=== PATIENT | female | born 1940 | race Caucasian/White ===

== ENCOUNTER 2018-09-07 04:07 | Inpatient (IN) ==
[2018-09-07 04:20] LABS: ABG HCO3 30.4 mmhg (22.0-26.0); ABG Oxygen Saturation 92 % (90-100); ABG PCO2 47.8 mmhg (35.0-45.0); ABG PH 7.42 mmol/L (7.35-7.45); ABG PO2 63.2 mmhg (80-100); ABG TCO2 31.9 mmhg (23-27)
[2018-09-07 04:22] LABS: Allen's Test Acceptable
[2018-09-07 04:37] LABS: Microscopic, Urine URINE MICROSCOPIC (MICROSCOPIC)
[2018-09-07 04:48] LABS: Appearance,Urine CLOUDY (Clear); Bilirubin,Urine Negative (Negative); Blood, Urine 2+ (Negative); Color,Urine YELLOW (Yellow); Glucose,Urine (UA) Negative (Negative); Ketones,Urine Negative (Negative); Leukocyte Esterase,Urine 2+ (Negative); Protein,Urine 1+ (Negative); Urobilinogen,Urine 0.2 EU/dl (0.2)
[2018-09-07 04:51] LABS: Amphetamine/Metha Screen,Urine Negative ng/mL (<1000); Barbiturates Screen,Urine Negative ng/mL (<200); Benzodiazepines Screen,Urine Negative ng/mL (<200); Cannabinoid Screen,Urine Negative ng/mL (<50); Cocaine Screen,Urine Negative ng/mL (<300); Methadone Screen,Urine Negative ng/mL (<300); Opiate Screen,Urine Positive ng/mL (<300); Phencyclidine Screen,Urine Negative ng/mL (<25)
[2018-09-07 04:52] LABS: WBC,Urine TNTC #/hpf (0-3)
[2018-09-07 04:56] LABS: Alanine Aminotransferase 22 U/L (12-78); Albumin Level 3.2 gm/dL (3.4-5.0); Albumin/Globulin Ratio 0.9 (1.1-1.8); Alkaline Phosphatase 83 U/L (46-116); Aspartate Amino Transferase 18 U/L (15-37); Bilirubin,Total 0.6 mg/dL (0.2-1.0); Blood Urea Nitrogen 28 mg/dL (7-18); Calcium 8.7 mg/dL (8.5-10.1); Carbon Dioxide 30 mmol/L (21.0-32.0); Chloride 90 mmol/L (98-107); Globulin 3.6 gm/dl (1.3-3.2); Glucose 133 mg/dL (74-106); Sodium 129 mmol/L (136-145); Total Protein,Serum 6.8 gm/dL (6.4-8.2)
[2018-09-07 04:58] LABS: Basophils % 0.3 % (0.1-2.0); Eosinophils % 0.1 % (0.1-12.0); Hematocrit 32.3 % (37.0-47.0); Hemoglobin 11.1 g/dL (12.2-16.2); Lymphocytes # 1.6 K/mm3 (0.7-4.5); Lymphocytes % 13.2 % (10-50); Mean Corpuscular HGB Conc 34.5 g/dL (31.8-35.4); Mean Corpuscular Hemoglobin 31.7 pg (27.0-31.2); Mean Corpuscular Volume 92.1 fl (81-99); Mean Platelet Volume 7.6 fl (7.4-10.4); Monocytes # 0.7 K/mm3 (0.1-1.0); Monocytes % 5.5 % (1.7-9.3); Neutrophils # 9.5 K/mm3 (1.8-7.8); Neutrophils % 80.9 % (37.0-80.0); Platelet Count 251 K/mm3 (142-424); Red Blood Count 3.51 M/mm3 (4.20-5.40); Red Cell Distribution Width 14.5 % (11.5-17.5); White Blood Count 11.8 K/mm3 (4.8-10.8)
[2018-09-07 05:05] LABS: C-Reactive Protein 32.5 mg/L (0.0-0.9)
--- NOTE | 2018-09-07 06:04 | Emergency Department Note ---
ED Disposition Clinical Impression: Acute exacerbation of chronic obstructive airways disease, Hyponatremia, Hypokalemia, Renal insufficiency, Elevated erythrocyte sedimentation rate, Elevated C-reactive protein UTI (urinary tract infection) Qualifiers: Urinary tract infection type: site unspecified Hematuria presence: without hematuria Qualified Code(s): N39.0 - Urinary tract infection, site not specified Anemia Qualifiers: Anemia type: unspecified type Qualified Code(s): D64.9 - Anemia, unspecified Chronic pain Qualifiers: Chronic pain type: chronic pain syndrome Qualified Code(s): G89.4 - Chronic pain syndrome Disposition: Admitted as Observation Condition on Discharge: Fair Referrals: Provider,Referral, [Primary Care Provider] - - Critical Care Critical Care Time: No Attestation: On 09/07/18, the high probability of a clinically significant, sudden or life threatening deterioration of the following system(s) required my full and direct attention, intervention and personal management. The time I documented below is in addition to time spent performing reported procedures but includes the following listed in this critical care notation. Medical Decision Making - Medical Records Medical records reviewed: Yes: I reviewed the patient's medical records. - Stanislav Inquiry Pt receiving controlled substance: No Vital Signs: 09/07/18 04:09 09/07/18 04:29 09/07/18 04:58 Temperature 99.3 F Temperature Source Oral Pulse Rate 94 H Pulse Rate [Right] 91 H 88 Respiratory Rate 16 16 Blood Pressure [Right Arm] 138/58 L 142/61 H Blood Pressure Mean [Right Arm] 84 88 Blood Pressure Source [Right Arm] Automatic Cuff Blood Pressure Position [Right Arm] Supine 02 Sat by Pulse Oximetry 92 L 94 L Oxygen Delivery Method Nasal Cannula Nasal Cannula Oxygen Flow Rate (LPM) 2.5 3 09/07/18 05:24 09/07/18 05:59 Temperature Temperature Source Pulse Rate Pulse Rate [Right] 83 85 Respiratory Rate 18 18 Blood Pressure [Right Arm] 113/53 L 136/68 Blood Pressure Mean [Right Arm] 73 90 Blood Pressure Source [Right Arm] Automatic Cuff Blood Pressure Position [Right Arm] Sitting 02 Sat by Pulse Oximetry 93 L 95 Oxygen Delivery Method Nasal Cannula Nasal Cannula Oxygen Flow Rate (LPM) 3 3 - Lab Data Lab results reviewed: Yes: I reviewed the patient's lab results. Lab Results 09/07/18 04:07: Specimen Source Left radial, O2 % 2.5 lpm nc, 30%, ABG pH 7.42, ABG pCO2 47.8 H, ABG pO2 63.2 L, ABG HCO3 30.4 H, ABG Total CO2 31.9 H, ABG O2 Saturation 92, ABG Base Excess 6.0 H, Raymundo Test Acceptable 09/07/18 04:31: WBC 11.8 H, RBC 3.51 L, Hgb 11.1 L, Hct 32.3 L, MCV 92.1, MCH 31.7 H, MCHC 34.5, RDW 14.5, Plt Count 251, MPV 7.6, Neut % (Auto) 80.9 H, Lymph % (Auto) 13.2, [place] % (Auto) 5.5, Eos % (Auto) 0.1, Baso % (Auto) 0.3, Neut # (Auto) 9.5 H, Lymph # (Auto) 1.6, [place] # (Auto) 0.7, Eos # (Auto) 0.0, Baso # (Auto) 0.0 09/07/18 04:31: Sodium 129 L, Potassium 3.0 L, Chloride 90 L, Carbon Dioxide 30, Anion Gap 12.0, BUN 28 H, Creatinine 1.38 H, Estimated Creat Clear 31, Estimated GFR 37 L, Est GFR ( Amer) 45 L, Glucose 133 H, Calcium 8.7, Total Bilirubin 0.6, AST 18, ALT 22, Alkaline Phosphatase 83, Troponin I < 0.02, C-Reactive Protein 32.5 H, Total Protein 6.8, Albumin 3.2 L, Globulin 3.6 H, Albumin/Globulin Ratio 0.9 L 09/07/18 04:31: Lactate 0.9 09/07/18 04:31: ESR 70 H 09/07/18 04:31: Urine Color Yellow, Urine Appearance Cloudy, Urine pH 6.0, Ur Specific [place] 1.020, Urine Protein 1+, Urine Glucose (UA) Negative, Urine Ketones Negative, Urine Blood 2+, Urine Nitrate Negative, Urine Bilirubin Negative, Urine Urobilinogen 0.2, Ur Leukocyte Esterase 2+ A, Urine RBC 10-20, Urine WBC Tntc 09/07/18 04:31: Urine Opiates Screen Positive H, Urine Methadone Screen Negative, Ur Barbituates Screen Negative, Ur Phencyclidine Scrn Negative, Ur Amphetamines Screen Negative, U Benzodiazepines Scrn Negative, Urine Cocaine Screen Negative, U Marijuana (THC) Screen Negative Result diagrams: 09/07/18 04:31 09/07/18 04:31 Orders (Tests/Meds): ED MEDICATIONS Generic Name Dose Route Start Last Admin Trade Name Freq PRN Reason Stop Dose Admin Sodium Chloride 1,000 mls @ 999 mls/hr 09/07/18 04:45 09/07/18 04:36 Sod Chlor 0.9% 1000ml Bag IV 09/07/18 05:45 999 mls/hr .[id number] RAY Administration Discontinued Medications Generic Name Dose Route Start Last Admin Trade Name Freq PRN Reason Stop Dose Admin Albuterol/Ipratropium 3 ml 09/07/18 04:34 09/07/18 04:36 Duoneb 3ml Neb IH 09/07/18 04:35 3 ml ONCE ONE Administration Methylprednisolone Sodium Succinate 125 mg 09/07/18 04:34 09/07/18 04:36 Solu-Medrol 125mg/2ml Vial IV 09/07/18 04:35 125 mg ONCE ONE Administration ORDERS Category Date Time Status CT head/brain wo con Stat Cat Scan 09/07/18 04:19 Taken XR chest portable Stat Exams 09/07/18 04:07 Taken Blood Culture Stat Micro 09/07/18 04:31 Received Urine Culture Stat Micro 09/07/18 04:31 Received - Radiology Data #1 Image(s): Chest Image Reviewed: Yes I reviewed the patient's radiology image Preliminary Findings: Abnormal (changes rt ) - CT Data CT Scan: Head Time Received: 06:[address] Reviewed: Yes: I have viewed the radiologist's interpretation Preliminary Findings: Normal/NAD Resp/SOB HPI - General Chief Complaint: Shortness of Breath/Dyspnea Stated Complaint: Shortness of Breath Time Seen by Provider: 09/07/18 05:00 Mode of Arrival: EMS Source of Information: Patient, Spouse, EMS, Medical Record Limitations: Altered Mental Status Description of Symptoms (Recalled from ER Triage Doc. by RN): pt here via EMS for SOA, pt very sleepy on arival,requires mult verbal prompts to answer questions. Albuterol neb given by EMS - History of Present Illness pt with weakness and dec level of activity over the last few days and this am was to weak to ambulate and brought by ems for eval- she uses o2 and has copd and chronic pain - no vomiiting or diarrhea - MD Complaint: shortness of breath Onset (ago): day(s) Severity: moderate Known history of: COPD Associated symptoms: cough, other (weakness) Treatment prior to arrival: bronchodilator - Related Data Home oxygen amount: 2 liters Home Medications Medication Instructions Recorded Confirmed Albuterol Sulfate [Proair Hfa 2 puffs IH Q4HP PRN 09/07/18 09/07/18 90mcg/puff Inh] Biotin 1,000 mcg PO DAILY 09/07/18 09/07/18 Escitalopram Oxalate 10 mg PO DAILY 09/07/18 09/07/18 Naloxegol Oxalate [Movantik] 12.5 mg PO BID 09/07/18 09/07/18 Oxycodone HCl/Acetaminophen 1 tab PO TID 09/07/18 09/07/18 [Percocet 10-325 mg Tablet] Quetiapine Fumarate 50 mg PO HS 09/07/18 09/07/18 hydroCHLOROthiazide [HCTZ 25mg 25 mg PO DAILY 09/07/18 09/07/18 tab] Allergies Allergy/AdvReac Type Severity Reaction Status Date / Time codeine [CODEINE] Allergy Unknown UNKNOWN Verified 09/07/18 04:32 morphine [MORPHINE] Allergy Unknown Verified 09/07/18 04:32 Sulfa (Sulfonamide Allergy Unknown UNKNOWN Verified 09/07/18 04:32 Antibiotics) [SULFA (SULFONAMIDE ANTIBIOTICS)] [facility] History - Hepatitis A Screen Drug use history?: No High risk sexual behaviors?: No History of sexually transmitted infection?: No Currently employed?: No Childcare worker?: No Do you have indoor plumbing?: Yes Do you have electricity?: Yes Attestation statement:: This patient has been screened for Hepatitis A risk factors. I have reviewed the patient's past medical history: Yes Medical History: Reports:: Home Oxygen - Social History Smoking Status: Former smoker Alcohol Intake: never Occupational Status: retired - Psychiatric History Expresses thoughts of harming self/others: None Suicide Plan Description: No Plan ROS Obtained: Yes All systems reviewed & no additional complaints - Constitutional Constitutional: Denies fever(s), Reports lethargy, Reports weakness - Eyes Eyes: Denies change in vision - ENT Ears, Nose, Mouth, and Throat: Denies headache(s) - Cardiovascular Cardiovascular: Denies chest pain - Respiratory Respiratory: Yes cough, No coughing up blood - Gastrointestinal Gastrointestingal: Denies: abdominal pain, nausea, vomiting - Genitourinary Female Genitourinary: Denies hematuria - Musculoskeletal Musculoskeletal: Denies joint pain, Denies neck pain - Integumentary/Breasts Skin/Breast: Denies rash - Neurologic Neurologic: Denies seizure-like activity Physical Exam - General General appearance: alert - Head Head exam: normocephalic - Eye Eye exam: Present: PERRL, EOMI - ENT ENT exam: Present: mucous membranes moist, mucous membranes dry - Neck Neck exam: Absent: trachea midline - Respiratory Respiratory exam: Present: normal lung sounds bilaterally. Absent: respiratory distress - Cardiovascular Cardiovascular exam: Present: regular rate, systolic murmur - Abdominal Exam Abdominal exam: Present: soft - Extremities Exam Extremities exam: Absent: calf tenderness - Expanded Lower Extremity Exam Left Knee exam: Present: tenderness, effusion Lower leg exam: Present: tenderness, Homans' sign Neurovascular/Tendon exam: Present: normal capillary refill. Absent: motor defi cit - Neurological Exam Neurological exam: Present: alert, oriented X3, CN II-XII intact - Psychiatric Psychiatric exam: Present: normal affect - Skin Skin exam: Absent: rash
--- NOTE | 2018-09-07 08:46 | History & Physical Report ---
*Admission Date: 09/07/18 *Chief complaint: weakness *History of present illness: this wf who has copd and on chronic o2 and has chronic pain with back issues followed by pain center- she has not felt well over the last few days and dec po intake and was unable to ambulate and was confused and brought to [facility] ed - she was found to have uti and abn labs and was admitted [facility] History I have reviewed the patient's past medical history: Yes Medical History: Reports:: Home Oxygen Denies:: Cancer, Diabetes Mellitus Type 1, Diabetes Mellitus Type 2, MRSA *Have you ever received a pneumonia vaccine?: Yes *Have you received a flu vaccine this season?: Yes Amputation: No Fractures: No - *Social History Educational Level: Completed High School Smoking Status: Former smoker Alcohol Intake: never *Occupational Status:: retired Housing: house Household Members: spouse *Travel in the last 8 weeks: None - Psychiatric History Expresses thoughts of harming self/others: None Suicide Plan Description: No Plan Family Hx:: Heart Attack Review of Systems - Review of Systems Review of systems:: pertinent systems reviewed and negative unless documented below - Constitutional Reports fatigue, Reports weakness, Reports other (change in mental status ), Denies fever(s) - Eyes Denies change in vision - ENT Denies sore throat - *Cardiovascular Denies chest pain at rest - *Respiratory Reports shortness of breath, Denies cough, Denies coughing up blood - *Gastrointestinal Denies abdominal pain - *Genitourinary Denies blood in urine - *Musculoskeletal Denies joint pain - Integumentary/Breasts Denies rash - *Neurologic Reports weakness, Denies headache(s), Denies seizure-like activity - Psychiatric Denies anxiety Meds Home Medications Medication Instructions Recorded Confirmed Type Albuterol Sulfate [Albuterol 2.5 mg IH Q6HP PRN 09/07/18 09/07/18 History 0.083% 2.5mg/3mL neb] Albuterol Sulfate [Proair Hfa 2 puffs IH Q4HP PRN 09/07/18 09/07/18 History 90mcg/puff Inh] Aspirin [Aspirin 81mg EC Tab] 81 mg PO DAILY 09/07/18 09/07/18 History Biotin 1,000 mcg PO DAILY 09/07/18 09/07/18 History Budesonide/Formoterol Fumarate 2 puffs IH BID 09/07/18 09/07/18 History [Symbicort 160-4.5 Mcg Inhaler] Fluticasone/Vilanterol [Breo 1 puff IH DAILY 09/07/18 09/07/18 History Ellipta 200-25 Mcg INH] Naloxegol Oxalate [Movantik] 12.5 mg PO DAILYP PRN 09/07/18 09/07/18 History Oxycodone HCl [Oxycodone (IR) 10mg 10 mg PO TID 09/07/18 09/07/18 History Tab] Promethazine HCl [Phenergan 25mg 25 mg PO Q4HP PRN 09/07/18 09/07/18 History tab] Quetiapine Fumarate 50 mg PO HS 09/07/18 09/07/18 History Tiotropium Bode [Spiriva 1 puff IN DAILY 09/07/18 09/07/18 History Respimat] dilTIAZem HCl [Dilt-Xr] 120 mg PO DAILY 09/07/18 09/07/18 History hydroCHLOROthiazide [HCTZ 25mg 25 mg PO DAILY 09/07/18 09/07/18 History tab] Allergies Allergy/AdvReac Type Severity Reaction Status Date / Time codeine [CODEINE] Allergy Unknown UNKNOWN Verified 09/07/18 04:32 morphine [MORPHINE] Allergy Unknown Verified 09/07/18 04:32 Sulfa (Sulfonamide Allergy Unknown UNKNOWN Verified 09/07/18 04:32 Antibiotics) [SULFA (SULFONAMIDE ANTIBIOTICS)] Exam Vital signs and Labs for Last 24 Hours: Temp Pulse Resp BP Pulse Ox 98.2 F 85 16 131/47 L 93 L 09/07/18 07:00 09/07/18 07:00 09/07/18 07:00 09/07/18 07:00 09/07/18 07:00 Laboratory Results - last 24 hr 09/07/18 04:07: Specimen Source Left radial, O2 % 2.5 lpm nc, 30%, ABG pH 7.42, ABG pCO2 47.8 H, ABG pO2 63.2 L, ABG HCO3 30.4 H, ABG Total CO2 31.9 H, ABG O2 Saturation 92, ABG Base Excess 6.0 H, Raymundo Test Acceptable 09/07/18 04:31: WBC 11.8 H, RBC 3.51 L, Hgb 11.1 L, Hct 32.3 L, MCV 92.1, MCH 31.7 H, MCHC 34.5, RDW 14.5, Plt Count 251, MPV 7.6, Neut % (Auto) 80.9 H, Lymph % (Auto) 13.2, [place] % (Auto) 5.5, Eos % (Auto) 0.1, Baso % (Auto) 0.3, Neut # (Auto) 9.5 H, Lymph # (Auto) 1.6, [place] # (Auto) 0.7, Eos # (Auto) 0.0, Baso # (Auto) 0.0 09/07/18 04:31: Sodium 129 L, Potassium 3.0 L, Chloride 90 L, Carbon Dioxide 30, Anion Gap 12.0, BUN 28 H, Creatinine 1.38 H, Estimated Creat Clear 31, Estimated GFR 37 L, Est GFR ( Amer) 45 L, Glucose 133 H, Calcium 8.7, Total Bilirubin 0.6, AST 18, ALT 22, Alkaline Phosphatase 83, Troponin I < 0.02, C- Reactive Protein 32.5 H, Total Protein 6.8, Albumin 3.2 L, Globulin 3.6 H, Albumin/Globulin Ratio 0.9 L 09/07/18 04:31: Lactate 0.9 09/07/18 04:31: ESR 70 H 09/07/18 04:31: Urine Color Yellow, Urine Appearance Cloudy, Urine pH 6.0, Ur Specific [place] 1.020, Urine Protein 1+, Urine Glucose (UA) Negative, Urine Ketones Negative, Urine Blood 2+, Urine Nitrate Negative, Urine Bilirubin Negative, Urine Urobilinogen 0.2, Ur Leukocyte Esterase 2+ A, Urine RBC 10-20, Urine WBC Tntc 09/07/18 04:31: Urine Opiates Screen Positive H, Urine Methadone Screen Negative, Ur Barbituates Screen Negative, Ur Phencyclidine Scrn Negative, Ur Amphetamines Screen Negative, U Benzodiazepines Scrn Negative, Urine Cocaine Screen Negative, U Marijuana (THC) Screen Negative I & O for Last 24 hours: Intake & Output 09/04/18 09/05/18 09/06/18 09/07/18 11:59 11:59 11:59 11:59 Intake Total 1050 / 1050 Output Total 500 / 500 Balance 550 / 550 Weight 128 lb 9 oz - Constitutional no acute distress, average body habitus - *Routine HEENT Exam Head: Present: normocephalic Eye: Present: EOMI, PERRL ENT: Present: mucous membranes dry - *Routine Neck Exam Present: supple - *Routine Respiratory Exam Present: prolonged expiratory phase, wheezes. Absent: respiratory distress - *Routine Cardiovascular Exam Present: RRR, murmur, S4 - *Routine Abdominal Exam Present: soft - *Routine Extremities Exam Absent: Rocky's sign - Routine Back/Spine/Pelvis Exam Back/Spine: Absent: CVA tenderness - *Routine Skin Exam Present: intact - *Routine Neurological Exam Present: alert, oriented X3, CN II-XII intact - Routine Psychiatric Exam Present: normal affect Assessment and Plan (1) UTI (urinary tract infection) Current visit: Yes Status: Acute Qualifiers: Urinary tract infection type: site unspecified Hematuria presence: without hematuria Qualified Code(s): N39.0 - Urinary tract infection, site not specified Category: Medical Code(s): N39.0 - Urinary tract infection, site not specified (2) Acute exacerbation of chronic obstructive airways disease Current visit: Yes Status: Acute Category: Medical Code(s): J44.1 - Chronic obstructive pulmonary disease with (acute) exacerbation (3) Chronic pain Current visit: Yes Status: Acute Qualifiers: Chronic pain type: chronic pain syndrome Qualified Code(s): G89.4 - Chronic pain syndrome Category: Medical Code(s): G89.29 - Other chronic pain (4) Renal insufficiency Current visit: Yes Status: Acute Category: Medical Code(s): N28.9 - Disorder of kidney and ureter, unspecified (5) Elevated erythrocyte sedimentation rate Current visit: Yes Status: Acute Category: Medical Code(s): R70.0 - Elevated erythrocyte sedimentation rate (6) Anemia Current visit: Yes Status: Acute Qualifiers: Anemia type: unspecified type Qualified Code(s): D64.9 - Anemia, unspecified Category: Medical Code(s): D64.9 - Anemia, unspecified (7) UTI (urinary tract infection), bacterial Current visit: Yes Status: Acute Category: Medical Code(s): N39.0 - Urinary tract infection, site not specified; A49.9 - Bacterial infection, unspecified
--- NOTE | 2018-09-07 11:53 | Pharmacy Consult Notes ---
[facility] Pharmacy VTE Monitoring - Patient Demographics Admission date: 09/07/18 Report Date: 09/07/18 Time: 11:53 Allergies/Adverse Reactions: Patient Allergies codeine [CODEINE] Allergy (Unknown, Verified 09/07/18 04:32) UNKNOWN morphine [MORPHINE] Allergy (Unknown, Verified 09/07/18 04:32) Sulfa (Sulfonamide Antibiotics) [SULFA (SULFONAMIDE ANTIBIOTICS)] Allergy (Unknown, Verified 09/07/18 04:32) UNKNOWN Height: 1.63 m Weight: 58.315 kg Patient Problems: Current Active Problems (Updated 09/07/18 @ 06:32 by Louie Le MD) UTI (urinary tract infection) (Acute) Acute exacerbation of chronic obstructive airways disease (Acute) Anemia (Acute) Hyponatremia (Acute) Chronic pain (Acute) Hypokalemia (Acute) Renal insufficiency (Acute) Elevated erythrocyte sedimentation rate (Acute) Elevated C-reactive protein (Acute) - VTE Risk Labs: VTE Related Lab Results Hgb 11.1 g/dL (12.2-16.2) L 09/07/18 04:31 Hct 32.3 % (37.0-47.0) L 09/07/18 04:31 Plt Count 251 K/mm3 (142-424) 09/07/18 04:31 BUN 28 mg/dL (7-18) H 09/07/18 04:31 Creatinine 1.38 mg/dL (0.55-1.02) H 09/07/18 04:31 Estimated Creat Clear 31 mL/min (50-200) 09/07/18 04:31 VTE Score: 2 - Prophylaxis VTE Prophylaxis Ordered?: Yes Types of VTE Prophylaxis: TEDS Knee High Location of Applied Device: Bilateral Lower Extremeties
[2018-09-08 06:02] LABS: Basophils % 0.1 % (0.1-2.0); Eosinophils % 0.1 % (0.1-12.0); Hemoglobin 10.1 g/dL (12.2-16.2); Lymphocytes # 1.3 K/mm3 (0.7-4.5); Lymphocytes % 9.6 % (10-50); Mean Corpuscular HGB Conc 33.6 g/dL (31.8-35.4); Mean Corpuscular Hemoglobin 31.5 pg (27.0-31.2); Mean Corpuscular Volume 93.8 fl (81-99); Mean Platelet Volume 7.8 fl (7.4-10.4); Monocytes # 0.5 K/mm3 (0.1-1.0); Monocytes % 3.3 % (1.7-9.3); Neutrophils # 11.9 K/mm3 (1.8-7.8); Neutrophils % 86.9 % (37.0-80.0); Platelet Count 241 K/mm3 (142-424); Red Cell Distribution Width 14.4 % (11.5-17.5); White Blood Count 13.7 K/mm3 (4.8-10.8)
[2018-09-08 06:22] LABS: Calcium 8.9 mg/dL (8.5-10.1); Chol/HDL Ratio 2.2 (1-3.5)
[2018-09-08 06:35] LABS: Lymphocytes % 7 % (10-50); Monocytes % 1 % (2-9); Neutrophils % 86 % (42-76); Polychromasia 1+; Total Cells Counted 100
--- NOTE | 2018-09-08 09:25 | Discharge Summary ---
General - General Admission date:: 09/07/18 Discharge date: 09/08/18 HPI HPI: this wf who has copd and on chronic o2 and has chronic pain with back issues followed by pain center- she has not felt well over the last few days and dec po intake and was unable to ambulate and was confused and brought to [facility] - she was found to have uti and abn labs and was admitted Hospital Course Hospital Course: pt did better with ivf anbd abx and has gram neg bact uti - labs stable except persistant low k - will d/c today and have pt call pcp for follow up and urine culture results Objective Vital signs: Temp Pulse Resp BP Pulse Ox 97.6 F 89 16 119/44 L 96 09/08/18 08:00 09/08/18 08:00 09/08/18 08:00 09/08/18 08:00 09/08/18 08:00 no acute distress, average body habitus - *Routine HEENT Exam Head: Present: normocephalic Eye: Present: EOMI, PERRL. Absent: conjunctival icterus ENT: Present: mucous membranes dry - *Routine Neck Exam Absent: JVD - *Routine Respiratory Exam Present: prolonged expiratory phase. Absent: respiratory distress - *Routine Cardiovascular Exam Present: RRR, murmur - *Routine Abdominal Exam Present: soft - *Routine Extremities Exam Absent: Rocky's sign - *Routine Skin Exam Present: intact - *Routine Neurological Exam Present: alert, oriented X3, CN II-XII intact - Routine Psychiatric Exam Present: normal affect Results Labs on day of discharge: Labs from last 24 hours 09/08/18 09/08/18 09/07/18 05:40 05:40 12:40 WBC 13.7 H RBC 3.20 L Hgb 10.1 L Hct 30.0 L MCV 93.8 MCH 31.5 H MCHC 33.6 RDW 14.4 Plt Count 241 MPV 7.8 Neut % (Auto) 86.9 H Lymph % (Auto) 9.6 L [place] % (Auto) 3.3 Eos % (Auto) 0.1 Baso % (Auto) 0.1 Neut # (Auto) 11.9 H Lymph # (Auto) 1.3 [place] # (Auto) 0.5 Eos # (Auto) 0.0 Baso # (Auto) 0.0 Total Counted 100 Neutrophils % (Manual) 86 H Band Neutrophils % 6.0 Lymphocytes % (Manual) 7 L Monocytes % (Manual) 1 L Platelet Estimate Normal Polychromasia 1+ Poikilocytosis 1+ Sodium 134 L Potassium 3.0 L Chloride 98 Carbon Dioxide 28 Anion Gap 11.0 BUN 20 H D Creatinine 0.82 D Estimated Creat Clear 44 Estimated GFR 68 Est GFR ( Amer) 82 D Glucose 156 H Calcium 8.9 Magnesium 2.2 Troponin I < 0.02 Triglycerides 44 Cholesterol 109 L LDL Cholesterol 51 VLDL Cholesterol 9 HDL Cholesterol 49 Cholesterol/HDL Ratio 2.2 Urine Color Urine Appearance Urine pH Ur Specific [place] Urine Protein Urine Glucose (UA) Urine Ketones Urine Blood Urine Nitrate Urine Bilirubin Urine Urobilinogen Ur Leukocyte Esterase Urine RBC Urine WBC 09/07/18 09/07/18 11:00 04:31 WBC RBC Hgb Hct MCV MCH MCHC RDW Plt Count MPV Neut % (Auto) Lymph % (Auto) [place] % (Auto) Eos % (Auto) Baso % (Auto) Neut # (Auto) Lymph # (Auto) [place] # (Auto) Eos # (Auto) Baso # (Auto) Total Counted Neutrophils % (Manual) Band Neutrophils % Lymphocytes % (Manual) Monocytes % (Manual) Platelet Estimate Polychromasia Poikilocytosis Sodium Potassium Chloride Carbon Dioxide Anion Gap BUN Creatinine Estimated Creat Clear Estimated GFR Est GFR ( Amer) Glucose Calcium Magnesium Troponin I < 0.02 Triglycerides Cholesterol LDL Cholesterol VLDL Cholesterol HDL Cholesterol Cholesterol/HDL Ratio Urine Color Yellow Urine Appearance Cloudy Urine pH 6.0 Ur Specific [place] 1.020 Urine Protein 1+ Urine Glucose (UA) Negative Urine Ketones Negative Urine Blood 2+ Urine Nitrate Negative Urine Bilirubin Negative Urine Urobilinogen 0.2 Ur Leukocyte Esterase 2+ A Urine RBC 10-20 Urine WBC Tntc Preliminary micro results at discharge 09/07/18 04:31 Urine Culture - Preliminary Urine,Catheterized Gram Negative Rods DS: Diagnosis - Discharge Diagnosis (1) UTI (urinary tract infection) Status: Acute (2) Acute exacerbation of chronic obstructive airways disease Status: Acute (3) Chronic pain Status: Acute (4) Renal insufficiency Status: Acute (5) Elevated erythrocyte sedimentation rate Status: Acute (6) Anemia Status: Acute (7) UTI (urinary tract infection), bacterial Status: Acute (8) Hypokalemia Status: Acute Discharge Plan - Patient Discharge Instructions Patient Instructions: Urinary Tract Infection, Chronic Obstructive Pulmonary Disease, Anemia of Chronic Disease, DI for Chronic Obstructive Pulmonary Disease, DI for Urinary Tract Infection (UTI), DI for Anemia of Chronic Disease, DI for Hyponatremia, Hyponatremia-Adult - Follow up Plan Home Medications: Home Medications Medication Instructions Recorded Confirmed Type Albuterol Sulfate [Albuterol 2.5 mg IH Q6HP PRN 09/07/18 09/07/18 History 0.083% 2.5mg/3mL neb] Albuterol Sulfate [Proair Hfa 2 puffs IH Q4HP PRN 09/07/18 09/07/18 History 90mcg/puff Inh] Aspirin [Aspirin 81mg EC Tab] 81 mg PO DAILY 09/07/18 09/07/18 History Biotin 1,000 mcg PO DAILY 09/07/18 09/07/18 History Budesonide/Formoterol Fumarate 2 puffs IH BID 09/07/18 09/07/18 History [Symbicort 160-4.5 Mcg Inhaler] Fluticasone/Vilanterol [Breo 1 puff IH DAILY 09/07/18 09/07/18 History Ellipta 200-25 Mcg INH] Naloxegol Oxalate [Movantik] 12.5 mg PO DAILYP PRN 09/07/18 09/07/18 History Oxycodone HCl [Oxycodone (IR) 10mg 10 mg PO TID 09/07/18 09/07/18 History Tab] Promethazine HCl [Phenergan 25mg 25 mg PO Q4HP PRN 09/07/18 09/07/18 History tab] Quetiapine Fumarate 50 mg PO HS 09/07/18 09/07/18 History Tiotropium [place] [Spiriva 1 puff IN DAILY 09/07/18 09/07/18 History Respimat] dilTIAZem HCl [Dilt-Xr] 120 mg PO DAILY 09/07/18 09/07/18 History hydroCHLOROthiazide [HCTZ 25mg 25 mg PO DAILY 09/07/18 09/07/18 History tab] Prescriptions/Medication Reconciliation: No Action Albuterol Sulfate [Proair Hfa 90mcg/puff Inh] 2 puffs IH Q4HP PRN PRN Reason: Shortness Of Breath Or Wheezing hydroCHLOROthiazide [HCTZ 25mg tab] 25 mg PO DAILY Quetiapine Fumarate 50 mg PO HS Biotin 1,000 mcg PO DAILY Tiotropium [place] [Spiriva Respimat] 1 puff IN DAILY Budesonide/Formoterol Fumarate [Symbicort 160-4.5 Mcg Inhaler] 2 puffs IH BID Aspirin [Aspirin 81mg EC Tab] 81 mg PO DAILY Oxycodone HCl [Oxycodone (IR) 10mg Tab] 10 mg PO TID Promethazine HCl [Phenergan 25mg tab] 25 mg PO Q4HP PRN PRN Reason: Nausea And Vomiting Fluticasone/Vilanterol [Breo Ellipta 200-25 Mcg INH] 1 puff IH DAILY Naloxegol Oxalate [Movantik] 12.5 mg PO DAILYP PRN PRN Reason: Constipation dilTIAZem HCl [Dilt-Xr] 120 mg PO DAILY Albuterol Sulfate [Albuterol 0.083% 2.5mg/3mL neb] 2.5 mg IH Q6HP PRN PRN Reason: Shortness Of Breath
== END 2018-09-08 10:09 | disposition home or self-care (01) | DRG 690 ==
LOC: 2ND 04:07 → ER 04:07 → OBSVTOIN 06:50 → 2ND 06:51 → INTOOBSV 10:59
PROVIDERS: ADMIT Emergency Medicine; ATTEND Emergency Medicine

== ENCOUNTER 2020-06-17 13:19 | Observation (INO) | payer MEDICARE, BC, SELFPAY ==
[2020-06-17] VITALS (7 sets, daily range): BP systolic 138–188; BP diastolic 57–85; PULSE 68–101; RESP 16–19; TEMP 36.6–36.7; O2SAT 91–99; BMI 20.5; BMI 203444.5; BMI 19.7
[2020-06-17 13:43] LABS: Basophils # 0.1 K/mm3 (0-0.2); Basophils % 0.3 % (0.1-2.0); Eosinophils # 0.1 K/mm3 (0.0-0.4); Eosinophils % 0.4 % (0.1-12.0); Hematocrit 43.6 % (37.0-47.0); Hemoglobin 14.1 g/dL (12.2-16.2); Lymphocytes # 0.9 K/mm3 (0.7-4.5); Lymphocytes % 4.7 % (10-50); Mean Corpuscular HGB Conc 32.4 g/dL (31.8-35.4); Mean Corpuscular Hemoglobin 31.2 pg (27.0-31.2); Mean Corpuscular Volume 96.4 fl (81-99); Mean Platelet Volume 8.4 fl (7.4-10.4); Monocytes # 0.1 K/mm3 (0.1-1.0); Monocytes % 0.8 % (1.7-9.3); Neutrophils # 17.2 K/mm3 (1.8-7.8); Neutrophils % 93.8 % (37.0-80.0); Platelet Count 308 K/mm3 (142-424); Red Blood Count 4.52 M/mm3 (4.20-5.40); Red Cell Distribution Width 15.6 % (11.5-17.5); White Blood Count 18.3 K/mm3 (4.8-10.8)
[2020-06-17 13:48] LABS: MANUAL DIFFERENTIAL MANUAL DIFFERENTIAL (MANUAL DIFF)
[2020-06-17 13:51] LABS: Chloride 100 mmol/L (98-107); Potassium 4.1 mmoL/L (3.5-5.1); Sodium 139 mmol/L (136-145)
[2020-06-17 13:53] LABS: Amylase 115 U/L (30-110); Lipase 109 U/L (23-300)
[2020-06-17 13:54] LABS: Alanine Aminotransferase 11 U/L (12-78); Albumin Level 4.1 g/dl (3.5-5.0); Albumin/Globulin Ratio 1.4 (1.1-1.8); Alkaline Phosphatase 78 U/L (38-126); Anion Gap 10.1 mEq/L (5-15); Aspartate Amino Transferase 23 U/L (14-36); Bilirubin,Total 0.7 mg/dl (0.2-1.3); Blood Urea Nitrogen 20 mg/dl (7-17); Calcium 9.4 mg/dl (8.4-10.2); Carbon Dioxide 33 mmol/L (22.0-30.0); Creatinine Clearance Estimated 40 mL/min (50-200); Estimated Glomerular Filt Rate 61 ml/min (>60); GFR (African American) 73 ML/MIN (>60); Glucose 133 mg/dl (74-100); Total Protein,Serum 7.1 g/dl (6.3-8.2)
[2020-06-17 13:58] LABS: Eosinophils % 1 % (0-3); Lymphocytes % 9 % (10-50); Monocytes % 5 % (2-9); Neutrophils % 85 % (42-76); Platelet Estimate Normal; RBC Morphology Normal; Total Cells Counted 100
--- NOTE | 2020-06-17 14:11 | CT_ITS ---
PROCEDURE: CT ABDOMEN PELVIS W CON CLINICAL INDICATION: LLQ pain Left lower quadrant pain COMPARISON: No exams were available for comparison TECHNIQUE: IV Contrast: 75ML Isovue 370 Oral Contrast None Axial images obtained with sagittal and coronal reformats. All CT scans at the facility use one or more dose reduction, viz: automated exposure control, ma/kV adjustment per patient size (including targeted exams where dose is matched to indication, i.e. head), or iterative reconstruction technique. FINDINGS: LOWER THORAX: There are atelectatic or fibrotic changes in the right middle lobe medially. Bilateral breast implants are present. Coronary artery stents and or calcifications are noted. ABDOMEN & PELVIS: There is a hypodensity in the left hepatic lobe in the subcapsular region measuring 9 mm consistent with a hepatic cyst. Gallstones are noted. There is periportal edema. The spleen and adrenal glands are unremarkable. A coarse calcification is present in the central aspect of the body of the pancreas. There are calcifications also in the region of the head of the pancreas. The pancreatic duct in the head of the pancreas is slightly prominent. There is extensive artifact from postsurgical changes in the lumbar spine and right subcutaneous flank epidural stimulator device. There are perisplenic varices present There is a 6 mm left ureteropelvic junction stone with mild left-sided hydronephrosis. The right kidney has an unremarkable appearance. There is mild stranding of the left perinephric renal fat. There is a moderate amount of retained colonic feces. No evidence of appendicitis. There has been a prior hysterectomy. Colonic diverticulosis noted without evidence of diverticulitis. Mild thickening versus nondistention of the descending and sigmoid colon. Mild degenerative changes of the hips. Inter pedicular screws are present from L1-L5 with connecting rods with multilevel degenerative changes. Prior laminectomy at these levels. Degenerative disc disease T12-L1 with kyphosis and L5-S1. IMPRESSION: 1. 6 mm left ureteropelvic junction stone with mild left hydronephrosis and mild stranding of the left perinephric renal fat. 2. Coarse calcification within the pancreas which may be due to chronic pancreatitis with mild prominence of the pancreatic duct 3. Cholelithiasis 4. Extensive postsurgical changes of the lumbar spine with artifact. 5. Moderate amount of retained colonic feces with colonic diverticulosis. Mild thickening of the descending and sigmoid colon nonspecific and may be due to nondistention versus mild colitis Dictated by: Raymundo Mckee MD 06/17/2020 16:04 Raymundo Mckee MD in [place] 06/17/2020 16:04
--- NOTE | 2020-06-17 14:12 | HMH.EDGENADL ---
ED Disposition Clinical Impression: Left ureteral calculus UTI (urinary tract infection) Qualifiers: Urinary tract infection type: site unspecified Hematuria presence: with hematuria Qualified Code(s): N39.0 - Urinary tract infection, site not specified; R31.9 - Hematuria, unspecified Disposition: Admitted as Observation Condition on Discharge: Fair Referrals: Micheline Dumont [Primary Care Provider] - - Critical Care Critical Care Time: No Attestation: On 06/17/20, the high probability of a clinically significant, sudden or life threatening deterioration of the following system(s) required my full and direct attention, intervention and personal management. The time I documented below is in addition to time spent performing reported procedures but includes the following listed in this critical care notation. Medical Decision Making - Stanislav Inquiry Pt receiving controlled substance: Yes Stanislav was queried for this patient: No Reason not queried -: Emergent pt cond-no time Risks and benefits of using a controlled substance: were not discussed with pt by me Vital Signs: 06/17/20 13:20 06/17/20 15:30 06/17/20 16:00 Temperature 98 F Temperature Source Oral Pulse Rate [Radial] 95 H 101 H 90 Respiratory Rate 16 16 Blood Pressure [Right Arm] 188/85 H 176/57 H 138/62 Blood Pressure Mean [Right Arm] 119 96 87 Blood Pressure Position [Right Arm] Sitting Sitting 02 Sat by Pulse Oximetry 99 97 96 Oxygen Delivery Method Room Air Room Air 06/17/20 16:30 Temperature Temperature Source Pulse Rate [Radial] 95 H Respiratory Rate 16 Blood Pressure [Right Arm] 155/74 H Blood Pressure Mean [Right Arm] 101 Blood Pressure Position [Right Arm] Sitting 02 Sat by Pulse Oximetry 99 Oxygen Delivery Method - Lab Data Lab results reviewed: Yes: I reviewed the patient's lab results. Lab Results 06/17/20 13:30: WBC 18.3 H, RBC 4.52, Hgb 14.1, Hct 43.6, MCV 96.4, MCH 31.2, MCHC 32.4, RDW 15.6, Plt Count 308, MPV 8.4, Neut % (Auto) 93.8 H, Lymph % (Auto) 4.7 L, [place] % (Auto) 0.8 L, Eos % (Auto) 0.4, Baso % (Auto) 0.3, Neut # (Auto) 17.2 H, Lymph # (Auto) 0.9, Ness # (Auto) 0.1, Eos # (Auto) 0.1, Baso # (Auto) 0.1, Total Counted 100, Neutrophils % (Manual) 85 H, Lymphocytes % (Manual) 9 L, Monocytes % (Manual) 5, Eosinophils % (Manual) 1, Platelet Estimate Normal, RBC Morphology Normal 06/17/20 13:30: Sodium 139, Potassium 4.1, Chloride 100, Carbon Dioxide 33 H, Anion Gap 10.1, BUN 20 H, Creatinine 0.90, Estimated Creat Clear 40, Estimated GFR 61, Est GFR ( Amer) 73, Glucose 133 H, Calcium 9.4, Total Bilirubin 0.7, AST 23, ALT 11 L, Alkaline Phosphatase 78, Total Protein 7.1, Albumin 4.1, Globulin 3.0, Albumin/Globulin Ratio 1.4, Amylase 115 H 06/17/20 13:30: Lipase 109 06/17/20 13:30: SARS-CoV-2 IgG Ab (Rapid) Negative, SARS-CoV-2 IgM Ab (Rapid) Negative 06/17/20 14:25: Urine Color Yellow, Urine Appearance Sl cloudy, Urine pH 6.0, Ur Specific [place] 1.025, Urine Protein Trace, Urine Glucose (UA) Negative, Urine Ketones Negative, Urine Blood 3+, Urine Nitrate Positive, Urine Bilirubin Negative, Urine Urobilinogen 0.2, Ur Leukocyte Esterase 1+ A, Urine RBC 5-10, Urine WBC 10-20, Urine Bacteria 2+ Result diagrams: 06/17/20 13:30 06/17/20 13:30 Orders (Tests/Meds): ED MEDICATIONS Generic Name Dose Route Start Last Admin Trade Name Freq PRN Reason Stop Dose Admin Ceftriaxone Sodium 1 gm/ 50 mls @ 100 mls/hr 06/17/20 16:30 06/17/20 16:37 Sodium Chloride IV 07/01/20 16:29 100 mls/hr Q24H RAY Administration Protocol Discontinued Medications Generic Name Dose Route Start Last Admin Trade Name Freq PRN Reason Stop Dose Admin Hydromorphone HCl 0.5 mg 06/17/20 14:12 06/17/20 14:16 Hydromorphone 2mg/Ml Syringe IV 06/17/20 14:13 0.5 mg ONCE ONE Administration Hydromorphone HCl 1 mg 06/17/20 16:37 06/17/20 16:42 Hydromorphone 2mg/Ml Syringe IV 06/17/20 16:38 1 mg ONCE ONE Admin
--- NOTE | 2020-06-17 14:30 | PC.NURSE ---
PT AND SPOUSE UPDATED ON PLAN OF CARE
[2020-06-17 14:35] LABS: Microscopic, Urine URINE MICROSCOPIC (MICROSCOPIC)
[2020-06-17 14:39] LABS: Appearance,Urine SL CLOUDY (Clear); Bilirubin,Urine Negative (Negative); Blood, Urine 3+ (Negative); Color,Urine YELLOW (Yellow); Glucose,Urine (UA) Negative (Negative); Ketones,Urine Negative (Negative); Leukocyte Esterase,Urine 1+ (Negative); Nitrate,Urine POSITIVE (Negative); Protein,Urine TRACE (Negative); Specific Gravity, Urine 1.025 (1.005-1.030); Urobilinogen,Urine 0.2 EU/dl (0.2)
[2020-06-17 14:48] LABS: Bacteria,Urine 2+ /lpf
--- NOTE | 2020-06-17 15:30 | PC.NURSE ---
PT UP TO BATHROOM PER WHEELCHAIR
--- NOTE | 2020-06-17 16:30 | PC.NURSE ---
PT AND SPOUSE UPDATED ON PLAN OF CARE
[2020-06-17 17:19] LABS: Coronavirus 19 IgG Antibody Negative (Negative); Coronavirus 19 IgM Antibody Negative (Negative)
--- NOTE | 2020-06-17 17:48 | PC.NURSE ---
CALLED FLOOR TO GIVE REPORT
--- NOTE | 2020-06-17 18:41 | PC.NURSE ---
Pt arrived to the floor at this time.
--- NOTE | 2020-06-17 20:34 | HMH.HP ---
*Admission Date: 06/17/20 *Chief complaint: kidney stone,uti,chronic pain *History of present illness: Patient is a 80-year-old white female, service patient, presented with left flank pain. Her work-up in the ER included a CT abdomen. Findings are as below IMPRESSION: 1. 6 mm left ureteropelvic junction stone with mild left hydronephrosis and mild stranding of the left perinephric renal fat. 2. Coarse calcification within the pancreas which may be due to chronic pancreatitis with mild prominence of the pancreatic duct 3. Cholelithiasis 4. Extensive postsurgical changes of the lumbar spine with artifact. 5. Moderate amount of retained colonic feces with colonic diverticulosis. Mild thickening of the descending and sigmoid colon nonspecific and may be due to nondistention versus mild colitis Patient was also found to have an elevated white count and urinalysis suggesting a UTI. The urology service was consulted. We will admit her for IV antibiotics, pain control, and further treatment of the 6 mm stone at the left UPJ. Patient has some comorbid COPD and chronic pain, she has had several spinal surgeries done. [facility] History Medical History: Reports:: Chronic Obstructive Pulmonary Disease (COPD), Home Oxygen Denies:: Cancer, Diabetes Mellitus Type 1, Diabetes Mellitus Type 2, MRSA *Have you ever received a pneumonia vaccine?: No *Have you received a flu vaccine this season?: No Laterality Cases: Bilateral: Other (spine surgery) Other Surgeries: Yes: Other Amputation: No Fractures: No Comment: spine surgery - *Social History Smoking Status: Former smoker Alcohol Intake: never *Occupational Status:: retired Housing: house Household Members: spouse *Travel in the last 8 weeks: None Family Hx:: Heart Attack Review of Systems - Constitutional Reports weakness - Eyes Denies change in vision - ENT Denies change in voice - *Cardiovascular Denies chest pain - *Respiratory Reports cough, Reports shortness of breath, Reports shortness of breath with activity - *Gastrointestinal Reports abdominal pain - *Genitourinary Reports difficulty urinating, Reports painful urination, Denies blood in urine - *Musculoskeletal Denies abnormal walking - Integumentary/Breasts Denies yellowing of the skin - *Neurologic Denies localized weakness, Denies tingling/numbness/burning sensations - Psychiatric Reports irritability - Endocrine Denies cold intolerance - Hematologic/Lymphatic Denies easy bleeding - Allergic/Immunologic Denies hives Meds Home Medications Medication Instructions Recorded Confirmed Type Albuterol Sulfate [Albuterol 2.5 mg IH Q6HP PRN 09/07/18 07/02/20 History 0.083% 2.5mg/3mL neb] Fluticasone/Vilanterol [Breo 1 puff IH DAILY 09/07/18 07/02/20 History Ellipta 200-25 Mcg INH] Quetiapine Fumarate 50 mg PO HS 09/07/18 07/02/20 History Tiotropium [place] [Spiriva 1 puff IH DAILY 09/07/18 07/02/20 History Respimat] hydroCHLOROthiazide [HCTZ 25mg 25 mg PO DAILY 09/07/18 07/02/20 History tab] Albuterol Sulfate [Albuterol 2 puffs IH Q4HP PRN 06/18/20 07/02/20 History Sulfate Hfa] Budesonide/Formoterol Fumarate 2 puffs IH BID 06/18/20 07/02/20 History [Budesonide-Formoterol 160-4.5] Hydrocod/Acet 5/325 mg [[place] 1 tab PO Q6HP PRN #10 tab 07/05/20 Rx 5/325mg tablet] Allergies Allergy/AdvReac Type Severity Reaction Status Date / Time codeine [CODEINE] Allergy Unknown UNKNOWN Verified 07/02/20 11:52 morphine [MORPHINE] Allergy Unknown Verified 07/02/20 11:52 Sulfa (Sulfonamide Allergy Unknown UNKNOWN Verified 07/02/20 11:52 Antibiotics) [SULFA (SULFONAMIDE ANTIBIOTICS)] Exam Vital signs and Labs for Last 24 Hours: Temp Pulse Resp BP Pulse Ox 98 F 95 H 18 142/78 H 95 06/17/20 19:10 06/17/20 19:10 06/17/20 19:10 06/17/20 19:10 06/17/20 18:53 Laboratory Results - last 24 hr 06/17/20 13:30: WBC 18
[2020-06-18] VITALS (22 sets, daily range): BP systolic 117–162; BP diastolic 53–82; PULSE 68–110; RESP 16–20; TEMP 36.5–37.7; O2SAT 90–97; BMI 19.7
--- NOTE | 2020-06-18 | CA_ITS ---
APPROVED REPORT EXAM: Comprehensive 2D, Doppler, and color-flow Echocardiogram Swatch Clerk: Lisa Andrews, RT(R) Ht: 5 ft 4 in Wt: 115lbs BSA: 1.55 BP: 127/53 mmHg Indications: Preop for renal calculi procedure, COPD, ex smoker, SOB, HTN, hyperlipidemia, home o2, breast implants 2D Dimensions LVOT 2.07 cm (M/F) 1.5-2.5 M-Mode Dimensions RVDd 2.01 cm (0.9-2.6) LA Diam 2.69 cm (1.9-4.0) LVDd 3.25 cm (3.5-5.7) Ao Diam 1.95 cm (2.0-3.7) LVDs 2.38 cm (3.5-5.7) IVSd 1.14 cm (0.6-1.1) PWd 0.87 cm (0.6-1.1) EF (Teich) 53.60% FS 26.80% EDV (Teich) 42.50 mL ESV (Teich) 19.70 mL LV Diastology E Decel Time 210.00 (160-240 msec) E/A Ratio 0.7 MED E' 7.00 (< 7 cm/sec) E'/MED E' Ratio 13.37 (>14) LAT E' 6.80 (<10 cm/sec) E/LAT E' Ratio 13.76 (>14) Mitral Valve MV E Max Diomedes. 94.00 (40-130 cm/s) MV A Velocity 142.00 (40-130 cm/s) E/A Ratio 0.66 MV Decel. Time 210.00 (160-240 ms) MV PHT 62.00 ms Left Ventricle Left atrium is mildly enlarged, left ventricle is normal size, moderate concentric left ventricular hypertrophy, visually estimated ejection fraction 65% with no regional wall motion abnormality, grade 1 diastolic dysfunction seen without tissue Doppler evidence of raise left atrial pressure. Right Ventricle Right atrium and right ventricle are normal size and contractility. Aortic Valve Aortic valve is minimally thickened and fibrosed, there is no aortic stenosis or aortic insufficiency. Mitral Valve Mitral valve leaflets are minimally thickened, there is no mitral stenosis, there is mild mitral regurgitation. Tricuspid Valve Tricuspid valve is grossly normal, there is mild tricuspid regurgitation, tricuspid regurgitation jet velocity is inadequate for calculation of the right ventricular systolic pressure. Pulmonic Valve Pulmonic valve is poorly visualized. Great Vessels Aortic root is normal size. Pericardium No significant pericardial effusion noted. Conclusion 1. Mildly enlarged left atrium, normal left ventricular size, moderate concentric left ventricular hypertrophy, visually estimated ejection fraction 65% with no regional wall motion abnormality, grade 1 diastolic dysfunction seen without tissue Doppler evidence of raise left atrial pressure. 2. Mild mitral and tricuspid regurgitation. 3. No significant pericardial effusion noted. Electronically signed by : Garry Kay, 06/18/2020 13:03:53
--- NOTE | 2020-06-18 03:02 | PC.NURSE ---
A&OX4. PT HAS TOLERATED RA WELL THROUGHOUT SHIFT. RESPIRATIONS REGULAR AND UNLABORED. FINE CRACKLES NOTED THROUGHOUT. ACTIVE BOWEL SOUNDS HEARD IN ALL 4 QUADRANTS. SOFT AND TENDER ABDOMEN. NO BM REPORTED. PT VOIDS PER TOILET WITH STANDBY ASSIST. DARK RED URINE NOTED. PT HAS REPORTED PAIN ONCE AND RECEIVED DILAUDID PER MAR. ON REASSESSMENT, PT STATED PAIN WAS TOLERABLE. PT REPORTED NAUSEA TWICE THIS SHIFT AND RECEIVED ZOFRAN ONCE AND PHENERGAN ONCE. ON REASSESSMENT, PT STATED NAUSEA HAD EASED. PT HAS BEEN AWAKE MOST OF SHIFT. BED IN LOWEST POSITION. CALL LIGHT WITHIN REACH. VSS. WILL CONTINUE TO MONITOR.
--- NOTE | 2020-06-18 07:46 | HMH.PHAVTE ---
[facility] Pharmacy VTE Monitoring - Patient Demographics Admission date: 06/18/20 Report Date: 06/18/20 Time: 07:46 Allergies/Adverse Reactions: Patient Allergies codeine [CODEINE] Allergy (Unknown, Verified 10/09/18 02:04) UNKNOWN morphine [MORPHINE] Allergy (Unknown, Verified 10/09/18 02:04) Sulfa (Sulfonamide Antibiotics) [SULFA (SULFONAMIDE ANTIBIOTICS)] Allergy (Unknown, Verified 10/09/18 02:04) UNKNOWN Height: 1.63 m Weight: 52.39 kg Patient Problems: Current Active Problems Back pain (Chronic) Left ureteral calculus (Acute) UTI (urinary tract infection) (Acute) Chronic pain (Chronic) UTI (urinary tract infection), bacterial (Acute) - VTE Risk Labs: VTE Related Lab Results Hgb 14.1 g/dL (12.2-16.2) 06/17/20 13:30 Hct 43.6 % (37.0-47.0) 06/17/20 13:30 Plt Count 308 K/mm3 (142-424) 06/17/20 13:30 BUN 20 mg/dl (7-17) H 06/17/20 13:30 Creatinine 0.90 mg/dl (0.52-1.04) 06/17/20 13:30 Estimated Creat Clear 40 mL/min (50-200) 06/17/20 13:30 Was VTE Risk Assessment Performed: Yes VTE Score: 4 VTE Risk Level: Low Risk Clinical Trial Participant: No - Prophylaxis VTE Prophylaxis Ordered?: Yes Types of VTE Prophylaxis: TEDS Knee High
[2020-06-18 08:01] LABS: Basophils % 0.2 % (0.1-2.0); Eosinophils % 0.2 % (0.1-12.0); Hematocrit 36.8 % (37.0-47.0); Lymphocytes # 2.5 K/mm3 (0.7-4.5); Lymphocytes % 10.5 % (10-50); Mean Corpuscular HGB Conc 32.3 g/dL (31.8-35.4); Mean Corpuscular Hemoglobin 31.6 pg (27.0-31.2); Mean Corpuscular Volume 97.9 fl (81-99); Mean Platelet Volume 8.2 fl (7.4-10.4); Monocytes # 0.8 K/mm3 (0.1-1.0); Monocytes % 3.5 % (1.7-9.3); Neutrophils # 20.2 K/mm3 (1.8-7.8); Neutrophils % 85.6 % (37.0-80.0); Platelet Count 212 K/mm3 (142-424); Red Blood Count 3.76 M/mm3 (4.20-5.40); Red Cell Distribution Width 15.6 % (11.5-17.5); White Blood Count 23.5 K/mm3 (4.8-10.8)
[2020-06-18 08:02] LABS: MANUAL DIFFERENTIAL MANUAL DIFFERENTIAL (MANUAL DIFF)
[2020-06-18 08:10] LABS: Anion Gap 7.1 mEq/L (5-15); Blood Urea Nitrogen 21 mg/dl (7-17); Calcium 8.8 mg/dl (8.4-10.2); Carbon Dioxide 32 mmol/L (22.0-30.0); Chloride 100 mmol/L (98-107); Creatinine Clearance Estimated 38 mL/min (50-200); Estimated Glomerular Filt Rate 54 ml/min (>60); GFR (African American) 65 ML/MIN (>60); Glucose 119 mg/dl (74-100); Potassium 4.1 mmoL/L (3.5-5.1); Sodium 135 mmol/L (136-145)
[2020-06-18 09:55] LABS: Lymphocytes % 12 % (10-50); Monocytes % 6 % (2-9); Neutrophils % 82 % (42-76); Platelet Estimate Normal; RBC Morphology Normal; Total Cells Counted 100
[2020-06-18 09:56] LABS: Hemoglobin 11.9 g/dL (12.2-16.2)
--- NOTE | 2020-06-18 10:03 | HMH.ACPN2 ---
Internal Medicine - PN: Subj *Date: 06/18/20 *Time: 11:59 Interval history: 80-year-old female patient sitting up in bed she denies chest pain or shortness of breath. She does complain of left-sided abdominal pain she rates pain as 2/10. Urology to see today and will consult cardiology for history of CAD. Exam Vital signs and Labs for Last 24 Hours: Temp Pulse Resp BP Pulse Ox 99.9 F H 99 H 16 127/53 L 92 L 06/18/20 07:53 06/18/20 07:53 06/18/20 07:53 06/18/20 07:53 06/18/20 07:53 Laboratory Results - last 24 hr 06/17/20 13:30: WBC 18.3 H, RBC 4.52, Hgb 14.1, Hct 43.6, MCV 96.4, MCH 31.2, MCHC 32.4, RDW 15.6, Plt Count 308, MPV 8.4, Neut % (Auto) 93.8 H, Lymph % (Auto) 4.7 L, [place] % (Auto) 0.8 L, Eos % (Auto) 0.4, Baso % (Auto) 0.3, Neut # (Auto) 17.2 H, Lymph # (Auto) 0.9, [place] # (Auto) 0.1, Eos # (Auto) 0.1, Baso # (Auto) 0.1, Total Counted 100, Neutrophils % (Manual) 85 H, Lymphocytes % (Manual) 9 L, Monocytes % (Manual) 5, Eosinophils % (Manual) 1, Platelet Estimate Normal, RBC Morphology Normal 06/17/20 13:30: Sodium 139, Potassium 4.1, Chloride 100, Carbon Dioxide 33 H, Anion Gap 10.1, BUN 20 H, Creatinine 0.90, Estimated Creat Clear 40, Estimated GFR 61, Est GFR ( Amer) 73, Glucose 133 H, Calcium 9.4, Total Bilirubin 0.7, AST 23, ALT 11 L, Alkaline Phosphatase 78, Total Protein 7.1, Albumin 4.1, Globulin 3.0, Albumin/Globulin Ratio 1.4, Amylase 115 H 06/17/20 13:30: Lipase 109 06/17/20 13:30: SARS-CoV-2 IgG Ab (Rapid) Negative, SARS-CoV-2 IgM Ab (Rapid) Negative 06/17/20 14:25: Urine Color Yellow, Urine Appearance Sl cloudy, Urine pH 6.0, Ur Specific [place] 1.025, Urine Protein Trace, Urine Glucose (UA) Negative, Urine Ketones Negative, Urine Blood 3+, Urine Nitrate Positive, Urine Bilirubin Negative, Urine Urobilinogen 0.2, Ur Leukocyte Esterase 1+ A, Urine RBC 5-10, Urine WBC 10-20, Urine Bacteria 2+ 06/18/20 07:14: WBC 23.5 H* D, RBC 3.76 L, Hgb 11.9 L D, Hct 36.8 L, MCV 97.9, MCH 31.6 H, MCHC 32.3, RDW 15.6, Plt Count 212 D, MPV 8.2, Neut % (Auto) 85.6 H, Lymph % (Auto) 10.5, [place] % (Auto) 3.5, Eos % (Auto) 0.2, Baso % (Auto) 0.2, Neut # (Auto) 20.2 H, Lymph # (Auto) 2.5, [place] # (Auto) 0.8, Eos # (Auto) 0.0, Baso # (Auto) 0.0, Total Counted 100, Neutrophils % (Manual) 82 H, Lymphocytes % (Manual) 12, Monocytes % (Manual) 6, Platelet Estimate Normal, RBC Morphology Normal 06/18/20 07:14: Sodium 135 L, Potassium 4.1, Chloride 100, Carbon Dioxide 32 H, Anion Gap 7.1, BUN 21 H, Creatinine 1.00, Estimated Creat Clear 38, Estimated GFR 54 L, Est GFR ( Amer) 65, Glucose 119 H, Calcium 8.8 I & O for Last 24 hours: Intake & Output 06/15/20 06/16/20 06/17/20 06/18/20 23:59 23:59 23:59 23:59 Intake Total 1300 / 1300 Balance 1300 / 1300 Weight 115 lb 115 lb 8 oz Microbiology Reports for the Last 24 Hours: Microbiology 06/17/20 14:25 Urine,Clean Catch Urine Culture - Preliminary Gram Negative Rods - Constitutional no acute distress - *Routine HEENT Exam Head: Present: normocephalic Eye: Present: EOMI ENT: Present: mucous membranes moist - *Routine Neck Exam Present: trachea midline. Absent: tracheal deviation - *Routine Respiratory Exam Present: wheezes. Absent: accessory muscle use - *Routine Cardiovascular Exam Present: RRR. Absent: tachycardia - *Routine Abdominal Exam Present: soft, normoactive bowel sounds, tenderness. Absent: firm, rigid Comments: L Sided Abd pain - *Routine Extremities Exam Present: full ROM, pulses intact. Absent: cyanosis, clubbing, calf tenderness - *Routine Skin Exam Present: intact, dry, warm. Absent: cyanosis, erythema - *Routine Neurological Exam Present: alert, oriented X3. Absent: altered mental status - Routine Psychiatric Exam Present: normal affect, normal thought process. Absent: auditory hallucinations, visual hallucinations Assessment and Plan (1) Left ureteral calculus Status: Acute
--- NOTE | 2020-06-18 11:55 | PC.NURSE ---
Pt to surgery at this time
--- NOTE | 2020-06-18 12:15 | ECG_ITS ---
APPROVED REPORT Exam: Resting ECG HR:98 bpm ECG Measurements Heart Rate 98 AXES PA 204 P 77 QRSd 80 QRS -9 QT 362 T 58 QTc 462 Conclusion Normal sinus rhythm LAE with LAD Late r wave progression Abnormal ECG Electronically signed by : Jose Gooden, 06/18/2020 18:44:48
--- NOTE | 2020-06-18 12:44 | HMH.CONS ---
*Admission Date: 06/18/20 *Reason for consult:: Obstructing 6 mm proximal left ureteral stone *History of present illness: Patient is a 80-year-old white female who presented to the emergency room yesterday with acute onset of left flank pain. She has had a couple of episodes during the week of some flank pain but the pain resolved however yesterday it was much worse. CT scan reveals a 6 mm proximal left ureteral stone with obstruction. Her white count is elevated to 18,000. She was admitted for pain control and antibiotics and planned urologic intervention today. Her white count this morning is up to 25,000 despite IV Rocephin. She looks well and is not toxic appearing. She is afebrile. [facility] History Medical History: Reports:: Chronic Obstructive Pulmonary Disease (COPD), Home Oxygen, Hypertension, Myocardial Infarction Denies:: Cancer, Diabetes Mellitus Type 1, Diabetes Mellitus Type 2, MRSA *Have you ever received a pneumonia vaccine?: No *Have you received a flu vaccine this season?: No Other Medical History: Reports: Arthritis Laterality Cases: Bilateral: Other (spine surgery) Other Surgeries: Yes: Appendectomy, Colonoscopy, Hysterectomy-Total, Hysterectomy-Partial, Other Amputation: No Fractures: No - *Social History Last grade of school completed: High school graduate Smoking Status: Current every day smoker # Packs/Day (cigarettes): 1 Alcohol Intake: never *Occupational Status:: retired Housing: house Household Members: spouse, children *Travel in the last 8 weeks: None Family Hx:: Heart Attack, Hyperlipidemia, Hypertension Review of Systems - Review of Systems Review of systems:: pertinent systems reviewed and negative unless documented below - *Neurologic Reports weakness, Denies abnormal walking, Denies localized weakness, Denies tingling/numbness/burning sensations Meds Home Medications Medication Instructions Recorded Confirmed Type Albuterol Sulfate [Albuterol 2.5 mg IH Q6HP PRN 09/07/18 06/17/20 History 0.083% 2.5mg/3mL neb] Albuterol Sulfate [Proair Hfa 2 puffs IH Q4HP PRN 09/07/18 06/17/20 History 90mcg/puff Inh] Biotin 1,000 mcg PO DAILY 09/07/18 06/17/20 History Budesonide/Formoterol Fumarate 2 puffs IH BID 09/07/18 06/17/20 History [Symbicort 160-4.5 Mcg Inhaler] Fluticasone/Vilanterol [Breo 1 puff IH DAILY 09/07/18 06/17/20 History Ellipta 200-25 Mcg INH] Naloxegol Oxalate [Movantik] 12.5 mg PO DAILYP PRN 09/07/18 06/17/20 History Oxycodone HCl [Oxycodone (IR) 10mg 10 mg PO TID 09/07/18 06/18/20 History Tab] Quetiapine Fumarate 50 mg PO HS 09/07/18 06/18/20 History Tiotropium [place] [Spiriva 1 puff IN DAILY 09/07/18 06/17/20 History Respimat] dilTIAZem HCL [Dilt-Xr] 120 mg PO DAILY 09/07/18 06/18/20 History hydroCHLOROthiazide [HCTZ 25mg 25 mg PO DAILY 09/07/18 06/18/20 History tab] Aspirin [Aspirin 81mg EC Tab] 81 mg PO DAILY 06/18/20 06/18/20 History Allergies Allergy/AdvReac Type Severity Reaction Status Date / Time codeine [CODEINE] Allergy Unknown UNKNOWN Verified 10/09/18 02:04 morphine [MORPHINE] Allergy Unknown Verified 10/09/18 02:04 Sulfa (Sulfonamide Allergy Unknown UNKNOWN Verified 10/09/18 02:04 Antibiotics) [SULFA (SULFONAMIDE ANTIBIOTICS)] Exam Vital signs and Labs for Last 24 Hours: Temp Pulse Resp BP Pulse Ox 98.0 F 68 20 152/82 H 93 L 06/18/20 11:34 06/18/20 11:34 06/18/20 11:34 06/18/20 11:34 06/18/20 11:34 Laboratory Results - last 24 hr 06/17/20 13:30: WBC 18.3 H, RBC 4.52, Hgb 14.1, Hct 43.6, MCV 96.4, MCH 31.2, MCHC 32.4, RDW 15.6, Plt Count 308, MPV 8.4, Neut % (Auto) 93.8 H, Lymph % (Auto) 4.7 L, [place] % (Auto) 0.8 L, Eos % (Auto) 0.4, Baso % (Auto) 0.3, Neut # (Auto) 17.2 H, Lymph # (Auto) 0.9, [place] # (Auto) 0.1, Eos # (Auto) 0.1, Baso # (Auto) 0.1, Total Counted 100, Neutrophils % (Manual) 85 H, Lymphocytes % (Manual) 9 L, Monocytes % (Manual) 5, Eosinophils % (Manual) 1, Platelet [place]
--- NOTE | 2020-06-18 13:25 | HMH.CNCARD ---
History of Present Illness Consult date: 06/18/20 Requesting physician: Dave Guthrie Consult reason: pre-op evaluation Chief complaint: Pre op Additional Medical History:: 1. Last urethral stone with obstruction (06/18/20) 2. Chronic obstructive pulmonary disease a. Home oxygen 3. Diastolic dysfunction (06/18/20) a. Echo (06/18/20) 4. Coronary Artery Disease a. HI (3-5 years ago) 5. Essential Hypertension 6. Hyperlipidemia History of present illness: 80-year-old female admitted to [facility] with a left urethral stone with obstruction and elevated WBCs. A few days prior she started having some left flank pain accompanied with nausea and vomiting. Patient stated the pain was becoming worse to where she was having a hard time, sitting still. Patient does have history of chronic obstructive pulmonary disease. She does have home oxygen. Patient does have history of coronary artery disease. Patient has had an HI in the past. Patient has not followed up with cardiology for over 3 years. Denies chest pain, tightness or pressure. Denies swelling of the lower extremities. Patient has history of hypertension and hyperlipidemia. Initial work-up was performed in the ED on admission. ECG revealed possible left atrial enlargement abnormal EKG normal sinus rhythm with a heart rate of 90 bpm. Echocardiogram was performed. Echo revealed EF 65% with no regional wall motion abnormality with grade 1 diastolic dysfunction. Mild MR and TR. Discussed plan of care with Dr. Tafoya. Patient is to undergo procedure with Dr. Au today. From a cardiac standpoint, patient is at a low and acceptable risk to proceed with her elective procedure. Please notify cardiology of any changes in patient's status. Echo: Conclusion 1. Mildly enlarged left atrium, normal left ventricular size, moderate concentric left ventricular hypertrophy, visually estimated ejection fraction 65% with no regional wall motion abnormality, grade 1 diastolic dysfunction seen without tissue Doppler evidence of raise left atrial pressure. 2. Mild mitral and tricuspid regurgitation. 3. No significant pericardial effusion noted. [facility] History I have reviewed the patient's past medical history: Yes Medical History: Reports:: Chronic Obstructive Pulmonary Disease (COPD), Home Oxygen, Hypertension, Myocardial Infarction Denies:: Cancer, Diabetes Mellitus Type 1, Diabetes Mellitus Type 2, MRSA *Have you ever received a pneumonia vaccine?: No *Have you received a flu vaccine this season?: No Other Medical History: Reports: Arthritis Laterality Cases: Bilateral: Other (spine surgery) Other Surgeries: Yes: Appendectomy, Colonoscopy, Hysterectomy-Total, Hysterectomy-Partial, Other Amputation: No Fractures: No - *Social History Last grade of school completed: High school graduate Smoking Status: Current every day smoker # Packs/Day (cigarettes): 1 Alcohol Intake: never *Occupational Status:: retired Housing: house Household Members: spouse, children *Travel in the last 8 weeks: None Family Hx:: Heart Attack, Hyperlipidemia, Hypertension Meds Home Medications Medication Instructions Recorded Confirmed Type Albuterol Sulfate [Albuterol 2.5 mg IH Q6HP PRN 09/07/18 06/17/20 History 0.083% 2.5mg/3mL neb] Albuterol Sulfate [Proair Hfa 2 puffs IH Q4HP PRN 09/07/18 06/17/20 History 90mcg/puff Inh] Biotin 1,000 mcg PO DAILY 09/07/18 06/17/20 History Budesonide/Formoterol Fumarate 2 puffs IH BID 09/07/18 06/17/20 History [Symbicort 160-4.5 Mcg Inhaler] Fluticasone/Vilanterol [Breo 1 puff IH DAILY 09/07/18 06/17/20 History Ellipta 200-25 Mcg INH] Naloxegol Oxalate [Movantik] 12.5 mg PO DAILYP PRN 09/07/18 06/17/20 History Oxycodone HCl [Oxycodone (IR) 10mg 10 mg PO TID 09/07/18 06/18/20 History Tab] Quetiapine Fumarate 50 mg PO HS 09/07/18 06/18/20 History Tiotropium [place] [Spiriva 1 puff IN DAILY 09/07/18 06/17/20 Histor
--- NOTE | 2020-06-18 13:51 | P.PN_ITS ---
[facility] Anesthesia Record Part I Intake, IV Amount: 200 Estimated blood loss (mL): 0 Urine output (mL): 0 Blood Products used (#): none Blood Pressure: 133/58 SaO2: 90 Pulse Rate: 82 Respiratory Rate: 18 Temperature: 98.3 F Patient is:: Drowsy, Stable Stable to PACU at:: 13:37
--- NOTE | 2020-06-18 13:53 | HMH.ANESCL ---
[facility] Anesthesia Checklist - Patient Identification Patient Identification: Arm Band, Verbal (Name & ) - Structural Data Admitted From: Home Planned Operative Procedure/s: cysto Consent for Planned Operative Procedure(s) Verified: Yes Verified Documents: History and Physical - NPO Status Verified Time NPO: 00:00 - Chart Verification Results Verified: CBC, BMP - Additional verifications Patient : No Anesthesia Reactions: No Hx Blood Transfusions: No Cephalosporin Allergy: No Previous Colonoscopy: Yes - Cardiovascular Assessment Heart Sounds: S1 & S2 Pulse Strength: Baseline Pulse Rhythm: Regular Peripheral Edema: No - Airway Assessment C-Spine Mobility Assessed: Yes TMJ Mobility Assessed: Yes Dentition: Dentures-good fit - Neurological Assessment Level of Consciousness: Awake, Alert, Appropriate Hx Seizures: No Numbness or tingling in extremities: No - Anesthesia Plan Anesthesia Risk discussed: Yes Anesthesia Plan: Verified ASA Class: III Anesthesia Type: General [facility] History I have reviewed the patient's past medical history: Yes Medical History: Reports:: Chronic Obstructive Pulmonary Disease (COPD), Home Oxygen, Hypertension, Myocardial Infarction Denies:: Cancer, Diabetes Mellitus Type 1, Diabetes Mellitus Type 2, MRSA *Have you ever received a pneumonia vaccine?: No *Have you received a flu vaccine this season?: No Other Medical History: Reports: Arthritis Anesthesia experience/problems:: none Laterality Cases: Bilateral: Other (spine surgery) Other Surgeries: Yes: Appendectomy, Colonoscopy, Hysterectomy-Total, Hysterectomy-Partial, Other Amputation: No Fractures: No - *Social History Last grade of school completed: High school graduate Smoking Status: Current every day smoker # Packs/Day (cigarettes): 1 Alcohol Intake: never Substance Use Type: unknown *Occupational Status:: retired Housing: house Household Members: spouse, children *Travel in the last 8 weeks: None Family Hx:: Heart Attack, Hyperlipidemia, Hypertension
--- NOTE | 2020-06-18 14:24 | PC.NURSE ---
PATIENT RETURNED FROM OR
--- NOTE | 2020-06-18 14:39 | FL_ITS ---
PROCEDURE: FL CYSTOGRAM NON-VOIDING CLINICAL INDICATION: LEFT STENT PLACEMENT COMPARISON: CT CT ABDOMEN PELVIS W CON from 06/17/2020 FINDINGS: Fluoroscopy time: 1 minutes 50 seconds. There is 1 image submitted with the C-arm showing a left ureteral stent in place with the proximal aspect curled in the left upper quadrant. The distal aspect of the stent is not visible on the image IMPRESSION: Status post left ureteral stent placement Dictated by: Raymundo Mckee MD 06/18/2020 17:19 Raymundo Mckee MD in OV 06/18/2020 17:19
--- NOTE | 2020-06-18 15:05 | P.OP_ITS ---
Date of procedure: 06/18/20 Pre-op Diagnosis:: 6 mm proximal left ureteral stone with obstruction/pyelonephritis Post-op Diagnosis:: Same Procedure performed:: Cystoscopy with left ureteral stone manipulation and left stent placement Surgeon:: Rick Au MD [employer] COORDINATOR:: Jose Virgen Anesthesia: [employer]Walker Estimated blood loss (mL): 0 Clinical Note:: Patient is 80-year-old white female admitted to the emergency room last evening with left renal colic. CT scan showed a 6 mm obstructing left ureteral stone. Her white count was 18 on admission and is 23,000 this morning. She is afebrile and does not appear toxic. Operative findings:: Left proximal ureteral stone was very hazy and manipulated easily back into the left renal pelvis and left stent placed with out evidence of pyelonephrosis. There was some denser appearing fluid from the ureteral stent after placement however. Operative note:: Patient taken to the operating room after informed consent was obtained. She was placed on the operating table in the supine position and general anesthesia administered. She was then placed into the dorsal lithotomy position and prepped and draped in the standard surgical fashion. She was on preoperative IV antibiotics. The 22 [place] cystoscope passed into the urethra and into the bladder without difficulty. The bladder was examined in a systematic fashion. There is no evidence of mucosal abnormalities. There was a little bit of debris and the reddish appearing sediment at the bladder base. No diverticula or trabeculation was noted. The ureteral orifices in their normal anatomic position. The left ureteral orifice was cannulated with a 5 [place] open-ended ureteral catheter and passed proximally to the level of the hazy calcification of the proximal ureter. This calcification was manipulated easily back into the left renal pelvis. The guidewire then passed through the ureteral catheter and ureteral cath removed. A 4.8 x 24 [place] stent then passed over the guidewire and the guidewire removed under fluoroscopy. The string was also removed. There was a good curl noted proximally and distally. The urine from the stent after placement was a little thicker and slightly reddish tint to it. There is no evidence of pus. Patient tolerated procedure well. Condition: stable Disposition: same day Specimens:: None Complications:: None
--- NOTE | 2020-06-18 15:11 | HMH.CONFU ---
Internal Medicine - PN: Subj *Date: 06/28/20 *Time: 15:14 Interval history: Patient status post left stone manipulation left stent placement earlier today. The proximal left ureteral stone was not visualized well and was a bit hazy it may be of uric acid composition. There was no evidence of pus from the left ureter. She tolerated well. Exam Vital signs and Labs for Last 24 Hours: Temp Pulse Resp BP Pulse Ox 98.3 F 82 18 128/59 L 97 06/18/20 13:52 06/18/20 14:07 06/18/20 14:07 06/18/20 14:07 06/18/20 14:07 Laboratory Results - last 24 hr 06/17/20 13:30: SARS-CoV-2 IgG Ab (Rapid) Negative, SARS-CoV-2 IgM Ab (Rapid) Negative 06/17/20 14:25: Urine Color Yellow, Urine Appearance Sl cloudy, Urine pH 6.0, Ur Specific [place] 1.025, Urine Protein Trace, Urine Glucose (UA) Negative, Urine Ketones Negative, Urine Blood 3+, Urine Nitrate Positive, Urine Bilirubin Negative, Urine Urobilinogen 0.2, Ur Leukocyte Esterase 1+ A, Urine RBC 5-10, Urine WBC 10-20, Urine Bacteria 2+ 06/18/20 07:14: WBC 23.5 H* D, RBC 3.76 L, Hgb 11.9 L D, Hct 36.8 L, MCV 97.9, MCH 31.6 H, MCHC 32.3, RDW 15.6, Plt Count 212 D, MPV 8.2, Neut % (Auto) 85.6 H, Lymph % (Auto) 10.5, [place] % (Auto) 3.5, Eos % (Auto) 0.2, Baso % (Auto) 0.2, Neut # (Auto) 20.2 H, Lymph # (Auto) 2.5, [place] # (Auto) 0.8, Eos # (Auto) 0.0, Baso # (Auto) 0.0, Total Counted 100, Neutrophils % (Manual) 82 H, Lymphocytes % (Manual) 12, Monocytes % (Manual) 6, Platelet Estimate Normal, RBC Morphology Normal 06/18/20 07:14: Sodium 135 L, Potassium 4.1, Chloride 100, Carbon Dioxide 32 H, Anion Gap 7.1, BUN 21 H, Creatinine 1.00, Estimated Creat Clear 38, Estimated GFR 54 L, Est GFR ( Amer) 65, Glucose 119 H, Calcium 8.8 I & O for Last 24 hours: Intake & Output 06/15/20 06/16/20 06/17/20 06/18/20 23:59 23:59 23:59 23:59 Intake Total 1500 / 1500 Balance 1500 / 1500 Weight 52.163 kg 52.39 kg Microbiology Reports for the Last 24 Hours: Microbiology 06/17/20 14:25 Urine,Clean Catch Urine Culture - Preliminary Gram Negative Rods - *Routine HEENT Exam Head: Present: normocephalic Eye: Present: EOMI, PERRL ENT: Present: mucous membranes moist - *Routine Neck Exam Present: supple. Absent: lymphadenopathy - *Routine Respiratory Exam Present: CTA bilaterally - *Routine Cardiovascular Exam Present: RRR - *Routine Abdominal Exam Present: soft, normoactive bowel sounds. Absent: tenderness - *Routine Extremities Exam Absent: cyanosis, clubbing, edema - *Routine Skin Exam Present: warm. Absent: rash - *Routine Neurological Exam Present: alert, oriented X3 Assessment and Plan (1) Left ureteral calculus Status: Acute Category: Medical Code(s): N20.1 - Calculus of ureter Patient is status post left ureteral stone manipulation and left stent placement earlier today. She tolerated well. Basic metabolic profile and CBC ordered for the morning. Hopefully her white count is decreasing and if she feels well may be discharged home to follow-up in the office with me next week. (2) UTI (urinary tract infection) Status: Acute Qualifiers: Urinary tract infection type: site unspecified Hematuria presence: with hematuria Qualified Code(s): N39.0 - Urinary tract infection, site not specified; R31.9 - Hematuria, unspecified Category: Medical Code(s): N39.0 - Urinary tract infection, site not specified (3) Back pain Status: Chronic Category: Medical Code(s): M54.9 - Dorsalgia, unspecified (4) Chronic pain Status: Chronic Category: Medical Code(s): G89.29 - Other chronic pain (5) UTI (urinary tract infection), bacterial Status: Acute Category: Medical Code(s): N39.0 - Urinary tract infection, site not specified; A49.9 - Bacterial infection, unspecified (6) Diastolic dysfunction Status: Acute Category: Medical Code(s): I51.89 - Other ill-defined heart diseases
--- NOTE | 2020-06-18 15:16 | PC.NURSE ---
1415 Pt arrived to the room initial set of vitals taken, Pt hooked up to O2 3L NC
--- NOTE | 2020-06-18 15:16 | PC.NURSE ---
Addendum entered by Thuan Atkins RN 06/18/20 15:17: [id number] Report recieved Original Note: Report recieved from Jocelynn Weston
--- NOTE | 2020-06-18 16:04 | HMH.PHAINT ---
MEDICATION RECONCILIATION COMPLETED ON PATIENT USING EXTERNAL FILL HISTORY FROM PHARMACY. -GIL MACHADO, SHARMAINED
--- NOTE | 2020-06-18 18:37 | PC.NURSE ---
Pt has rested in bed during this shift, Pt has a Lt ureteral stent placed this shift, Pt BLT lungs sounds of fine crackles, Bowel sounds present in all 4 quadrants, IV patent, Pt on 3L NC for low o2 saturations after surgery. Pt denies feeling SOA, headache, N/V, or any pain, No edema noted, Pts urine being strained for kidney stones
[2020-06-19] VITALS: BP 144/63; PULSE 94; RESP 22; TEMP 36.6; O2SAT 93
--- NOTE | 2020-06-19 02:13 | PC.NURSE ---
A&OX4. PT HAS TOLERATED RA WELL THROUGHOUT SHIFT. RESPIRATIONS REGULAR AND UNLABORED. INSPIRATORY AND EXPIRATORY WHEEZES NOTED THROUGHOUT. NO COUGH NOTED. ACTIVE BOWEL SOUNDS HEARD IN ALL 4 QUADRANTS. SOFT AND TENDER ABDOMEN. DARK RUBA TO LIGHT RUBA URINE NOTED. PT VOIDS PER TOILET W STANDBY ASSIST. URINE HAS BEEN STRAINED EACH TIME. NO KIDNEY STONE PASSED THUS FAR. PT HAS REPORTED PAIN ONCE AND NAUSEA ONCE. PT RECEIVED ZOFRAN AND DILAUDID. ON REASSESSMENT, PT STATED NAUSEA HAD EASED AND PAIN WAS TOLERABLE. NEW IV WAS INSERTED IN R FOREARM. IV IN LAC WAS LEAKING. IV REMOVED AND 4X4S AND KOBAN APPLIED. NS INFUSING AT 100ML/HR. TEDS IN PLACE. PT HAS BEEN AWAKE MOST OF SHIFT. SHE IS CURRENTLY RESTING AT THIS TIME. BED IN LOWEST POSITION. CALL LIGHT WITHIN REACH. VSS. WILL CONTINUE TO MONITOR.
[2020-06-19 04:00] VITALS: BP 170/75; PULSE 77; RESP 20; TEMP 36.6; O2SAT 93
--- NOTE | 2020-06-19 07:18 | PC.NURSE ---
PT HAS BEEN RA-3L NC NEEDED THROUGHOUT SHIFT. PT WEARS 3L NC AT HOME AT NIGHT PER PT. SHE WEARS IT WHEN SHE GETS SOB.
[2020-06-19 08:00] VITALS: BP 131/55; PULSE 97; RESP 19; TEMP 36.8; O2SAT 95
--- NOTE | 2020-06-19 09:58 | HMH.ACPN2 ---
Internal Medicine - PN: Subj *Date: 06/20/20 *Time: 08:22 Interval history: doing better this am but still with pain and dec po intake Exam Vital signs and Labs for Last 24 Hours: Temp Pulse Resp BP Pulse Ox 98.3 F 97 H 19 131/55 L 95 06/19/20 08:00 06/19/20 08:00 06/19/20 08:00 06/19/20 08:00 06/19/20 08:00 I & O for Last 24 hours: Intake & Output 06/16/20 06/17/20 06/18/20 06/19/20 11:59 11:59 11:59 11:59 Intake Total 1300 / 1300 2336 / 2336 Output Total 300 / 300 450 / 450 Balance 1000 / 1000 1886 / 1886 Weight 115 lb 8 oz Microbiology Reports for the Last 24 Hours: Microbiology 06/17/20 14:25 Urine,Clean Catch Urine Culture - Final Escherichia coli - Constitutional no acute distress - *Routine HEENT Exam Head: Present: normocephalic Eye: Present: EOMI, PERRL ENT: Present: mucous membranes dry - *Routine Neck Exam Present: supple - *Routine Respiratory Exam Present: decreased breath sounds - *Routine Cardiovascular Exam Present: RRR - *Routine Abdominal Exam Present: soft - *Routine Extremities Exam Absent: calf tenderness - *Routine Skin Exam Present: intact - *Routine Neurological Exam Present: alert, CN II-XII intact - Routine Psychiatric Exam Present: normal affect Assessment and Plan (1) Left ureteral calculus Status: Acute Category: Medical Code(s): N20.1 - Calculus of ureter (2) UTI (urinary tract infection) Status: Acute Qualifiers: Urinary tract infection type: site unspecified Hematuria presence: with hematuria Qualified Code(s): N39.0 - Urinary tract infection, site not specified; R31.9 - Hematuria, unspecified Category: Medical Code(s): N39.0 - Urinary tract infection, site not specified (3) Back pain Status: Chronic Category: Medical Code(s): M54.9 - Dorsalgia, unspecified (4) Chronic pain Status: Chronic Category: Medical Code(s): G89.29 - Other chronic pain (5) UTI (urinary tract infection), bacterial Status: Acute Category: Medical Code(s): N39.0 - Urinary tract infection, site not specified; A49.9 - Bacterial infection, unspecified (6) Diastolic dysfunction Status: Acute Category: Medical Code(s): I51.89 - Other ill-defined heart diseases (7) E. coli UTI (urinary tract infection) Status: Acute Category: Medical Code(s): N39.0 - Urinary tract infection, site not specified; B96.20 - Unspecified Escherichia coli [E. coli] as the cause of diseases classified elsewhere
[2020-06-19 16:00] VITALS: BP 118/78; PULSE 106; RESP 18; TEMP 37.1; O2SAT 96
[2020-06-19 16:00] LABS: Basophils % 0.4 % (0.1-2.0); Eosinophils # 0.1 K/mm3 (0.0-0.4); Eosinophils % 1.2 % (0.1-12.0); Hematocrit 35.7 % (37.0-47.0); Hemoglobin 10.6 g/dL (12.2-16.2); Lymphocytes # 2.4 K/mm3 (0.7-4.5); Lymphocytes % 21.4 % (10-50); Mean Corpuscular HGB Conc 29.7 g/dL (31.8-35.4); Mean Corpuscular Hemoglobin 31.5 pg (27.0-31.2); Mean Corpuscular Volume 105.8 fl (81-99); Mean Platelet Volume 8.2 fl (7.4-10.4); Monocytes # 0.7 K/mm3 (0.1-1.0); Monocytes % 6.5 % (1.7-9.3); Neutrophils # 7.8 K/mm3 (1.8-7.8); Neutrophils % 70.5 % (37.0-80.0); Platelet Count 176 K/mm3 (142-424); Red Blood Count 3.37 M/mm3 (4.20-5.40); Red Cell Distribution Width 15.5 % (11.5-17.5); White Blood Count 11.1 K/mm3 (4.8-10.8)
[2020-06-19 16:10] LABS: Chloride 105 mmol/L (98-107)
[2020-06-19 16:11] LABS: Potassium 3.9 mmoL/L (3.5-5.1); Sodium 132 mmol/L (136-145)
[2020-06-19 16:14] LABS: Anion Gap 7.9 mEq/L (5-15); Blood Urea Nitrogen 16 mg/dl (7-17); Calcium 8.3 mg/dl (8.4-10.2); Carbon Dioxide 23 mmol/L (22.0-30.0); Creatinine Clearance Estimated 38 mL/min (50-200); Estimated Glomerular Filt Rate 81 ml/min (>60); GFR (African American) 98 ML/MIN (>60); Glucose 99 mg/dl (74-100)
--- NOTE | 2020-06-19 19:48 | PC.NURSE ---
Pt has done well this shift and been up to bathroom with no complaints. Does wear 3 L nc 02 prn. VSS. No acute changes. Report given to Walker Iqbal RN. Meds given per jul. Intermittent no productive cough.
[2020-06-19 20:00] VITALS: BP 146/56; PULSE 94; RESP 19; TEMP 36.8; O2SAT 90
[2020-06-19 20:05] VITALS: RESP 22
[2020-06-20] VITALS (9 sets, daily range): BP systolic 138–178; BP diastolic 60–93; PULSE 78–111; RESP 16–22; TEMP 36.7–37.5; O2SAT 87–98; BMI 21.5
--- NOTE | 2020-06-20 06:53 | PC.NURSE ---
pt reported pain at start of shift and prn med given per jul. slept most of night and 3LNC worn off and on. iv patent and infusing per order. pt uses BSC and BR. urine is to being strained. no acute changes. vss. call light in reach. will continue to monitor
--- NOTE | 2020-06-20 10:04 | XR_ITS ---
PROCEDURE: XR CHEST 2V Referring Doctor: Louie Le Patient Age:80Y CLINICAL HISTORY: sob COPD COMPARISON: CT CT ABDOMEN PELVIS W CON from 06/17/2020 FINDINGS: .. lungs are hyperexpanded reflect underlying COPD.See no definitive pneumonia. Left lung with linear area of atelectasis and scarring towards the left lung base. No a definitive infiltrate or pneumonia evident the. Right chest: Also appears to be some scarring and atelectasis at the medial right lung base the atelectasis and scarring. Minimal linear scarring/atelectasis at the medial aspect of the RML on the CT chest from 06/17/2020 of appears to correlate. 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 May merely be a vascular shadow. The see no convincing pneumonia or acute finding. The heart mildly enlarged. [place] and mediastinal structures similar to prior study with features as above but the superior mediastinum is un satisfactory. The patient has a spinal stimulator device overlying the mid T-spine T6/7. Leads extend to the subcutaneous tissues of the back. Multilevel posterior fusion lumbar spine partially imaged. Slight blunting right CP angle most likely reflecting some mild chronic pleural changes as less likely small right pleural effusion the since none none was evident on CT abdomen from from 3 days ago.. Normal pulmonary vascularity bilaterally no good evidence of CHF IMPRESSION: COPD. No discrete focal pneumonia/Nothing definitely acute- . Only note some minimal areas of minimal linear scarring and atelectasis towards lung bases bilaterally. Mild blunting right CP angle more likely reflecting some chronic pleural scarring and changes. Difficult to exclude a small effusion. No CHF radiographically Cardiomegaly. COPD. Dictated by: Jordy Antunez MD 06/20/2020 14:18 Jordy Antunez MD in [place] 06/20/2020 14:18
--- NOTE | 2020-06-20 10:08 | HMH.ACPN2 ---
Internal Medicine - PN: Subj *Date: 06/20/20 *Time: 10:08 Interval history: more alert - meds/vital signs and labs were reviewed - more sob - possible fluid over load with her copd - will check labs and xrays Exam Vital signs and Labs for Last 24 Hours: Temp Pulse Resp BP Pulse Ox 98.0 F 107 H 22 175/65 H 93 L 06/20/20 08:00 06/20/20 08:00 06/20/20 08:00 06/20/20 08:00 06/20/20 08:00 Laboratory Results - last 24 hr 06/19/20 15:58: WBC 11.1 H D, RBC 3.37 L, Hgb 10.6 L, Hct 35.7 L, MCV 105.8 H, MCH 31.5 H, MCHC 29.7 L, RDW 15.5, Plt Count 176, MPV 8.2, Neut % (Auto) 70.5, Lymph % (Auto) 21.4, [place] % (Auto) 6.5, Eos % (Auto) 1.2, Baso % (Auto) 0.4, Neut # (Auto) 7.8, Lymph # (Auto) 2.4, [place] # (Auto) 0.7, Eos # (Auto) 0.1, Baso # (Auto) 0.0 06/19/20 15:58: Sodium 132 L, Potassium 3.9, Chloride 105, Carbon Dioxide 23 D, Anion Gap 7.9, BUN 16, Creatinine 0.70 D, Estimated Creat Clear 38, Estimated GFR 81, Est GFR ( Amer) 98 D, Glucose 99, Calcium 8.3 L I & O for Last 24 hours: Intake & Output 06/17/20 06/18/20 06/19/20 06/20/20 11:59 11:59 11:59 11:59 Intake Total 1300 / 1300 2336 / 2336 3023 / 3023 Output Total 300 / 300 450 / 450 400 / 400 Balance 1000 / 1000 1886 / 1886 2623 / 2623 Weight 115 lb 8 oz 126 lb 4 oz Microbiology Reports for the Last 24 Hours: Microbiology 06/17/20 14:25 Urine,Clean Catch Urine Culture - Final Escherichia coli - Constitutional no acute distress, thin - *Routine HEENT Exam Head: Present: normocephalic Eye: Present: EOMI, PERRL ENT: Present: mucous membranes dry - *Routine Neck Exam Present: supple - *Routine Respiratory Exam Present: decreased breath sounds, rhonchi - *Routine Cardiovascular Exam Present: RRR, murmur, S4 - *Routine Abdominal Exam Present: soft - *Routine Extremities Exam Absent: calf tenderness - *Routine Skin Exam Present: intact - *Routine Neurological Exam Present: alert, CN II-XII intact - Routine Psychiatric Exam Present: normal affect Assessment and Plan (1) Left ureteral calculus Status: Acute Category: Medical Code(s): N20.1 - Calculus of ureter (2) UTI (urinary tract infection) Status: Acute Qualifiers: Urinary tract infection type: site unspecified Hematuria presence: with hematuria Qualified Code(s): N39.0 - Urinary tract infection, site not specified; R31.9 - Hematuria, unspecified Category: Medical Code(s): N39.0 - Urinary tract infection, site not specified (3) Back pain Status: Chronic Category: Medical Code(s): M54.9 - Dorsalgia, unspecified (4) Chronic pain Status: Chronic Category: Medical Code(s): G89.29 - Other chronic pain (5) UTI (urinary tract infection), bacterial Status: Acute Category: Medical Code(s): N39.0 - Urinary tract infection, site not specified; A49.9 - Bacterial infection, unspecified (6) Diastolic dysfunction Status: Acute Category: Medical Code(s): I51.89 - Other ill-defined heart diseases (7) E. coli UTI (urinary tract infection) Status: Acute Category: Medical Code(s): N39.0 - Urinary tract infection, site not specified; B96.20 - Unspecified Escherichia coli [E. coli] as the cause of diseases classified elsewhere (8) Acute exacerbation of chronic obstructive airways disease Status: Acute Category: Medical Code(s): J44.1 - Chronic obstructive pulmonary disease with (acute) exacerbation (9) HTN (hypertension) Status: Acute Qualifiers: Hypertension type: essential hypertension Qualified Code(s): I10 - Essential (primary) hypertension Category: Medical Code(s): I10 - Essential (primary) hypertension (10) LVH (left ventricular hypertrophy) Status: Acute Category: Medical Code(s): I51.7 - Cardiomegaly
[2020-06-20 11:20] LABS: Basophils % 0.4 % (0.1-2.0); Eosinophils # 0.1 K/mm3 (0.0-0.4); Eosinophils % 1.3 % (0.1-12.0); Hematocrit 36.1 % (37.0-47.0); Lymphocytes # 2.5 K/mm3 (0.7-4.5); Lymphocytes % 23.9 % (10-50); Mean Corpuscular HGB Conc 32.4 g/dL (31.8-35.4); Mean Corpuscular Hemoglobin 31.6 pg (27.0-31.2); Mean Corpuscular Volume 97.4 fl (81-99); Mean Platelet Volume 8.2 fl (7.4-10.4); Monocytes # 0.7 K/mm3 (0.1-1.0); Monocytes % 6.9 % (1.7-9.3); Neutrophils # 7.2 K/mm3 (1.8-7.8); Neutrophils % 67.6 % (37.0-80.0); Platelet Count 238 K/mm3 (142-424); Red Cell Distribution Width 15.5 % (11.5-17.5); White Blood Count 10.6 K/mm3 (4.8-10.8)
[2020-06-20 11:25] LABS: Hemoglobin 11.7 g/dL (12.2-16.2)
[2020-06-20 11:31] LABS: Chloride 103 mmol/L (98-107); Potassium 3.8 mmoL/L (3.5-5.1); Sodium 137 mmol/L (136-145)
[2020-06-20 11:34] LABS: Blood Urea Nitrogen 10 mg/dl (7-17); Creatinine Clearance Estimated 42 mL/min (50-200); Estimated Glomerular Filt Rate 97 ml/min (>60); GFR (African American) 117 ML/MIN (>60)
[2020-06-20 11:35] LABS: Anion Gap 5.8 mEq/L (5-15); Calcium 8.7 mg/dl (8.4-10.2); Carbon Dioxide 32 mmol/L (22.0-30.0); Glucose 86 mg/dl (74-100)
--- NOTE | 2020-06-20 13:50 | PC.NURSE ---
RA SAT=84%
--- NOTE | 2020-06-20 15:20 | PC.NURSE ---
Educated pt on need for sputum and placed sample cup at bedside. Verbs understanding. Pt has had audible wheezing and intermittently wore 3 L NC 02. CB in reach. Pt has voided well since iv lasix. VSS. Pulmonary consult is placed for am. Mx continues this shift.
--- NOTE | 2020-06-20 18:58 | PC.NURSE ---
No acute changes this afternoon. CB in reach. Alert and oriented. VSS
[2020-06-21] VITALS (8 sets, daily range): BP systolic 120–154; BP diastolic 48–70; PULSE 70–96; RESP 14–20; TEMP 36.7–36.9; O2SAT 86–98; BMI 21.5
--- NOTE | 2020-06-21 04:37 | PC.NURSE ---
PT HAS RESTED INTERMITTENTLY SINCE 2299 THIS SHIFT, RECEIVED PAIN MEDICATION X 1. PI A&O X 4. VSS. HAS WORN O2 3L/NC OCCASIONALLY FOR SHORTNESS OF BREATH. SCATTERED WHEEZES NOTED, BREATH SOUNDS DIMINISHED IN BILATERAL BASES. PT WITH OCCASIONAL COUGH, NON-PRODUCTIVE. IV PATENT, PT VOIDING CLEAR YELLOW URINE, URINE STRAINED, FRAGMENTS NOTED THAT RESEMBLE SAND. CALL LIGHT WITHIN REACH. WILL CONTINUE TO MONITOR.
--- NOTE | 2020-06-21 08:45 | PC.NURSE ---
PT BILATERAL LUNG SOUNDS WITH WHEEZINF THROUGHOUT AND RONCHI AT BASES. NO EDEMA NOTED. INTERMITTENT NONPRODUTIVE COUGH NOTED. PAIN RATE 3/10 ON VERBAL SCALE IN LLQ OF ABD. PT HAS GENERALIZED WEAKNESS. DENIES ANY FURTHER NEEDS WILL CONTINUE TO OBSERVE.
--- NOTE | 2020-06-21 09:04 | HMH.PULMCON ---
*Admission Date: 06/18/20 *Reason for consult:: COPD *History of present illness: Ms. Pantoja 80-year-old female more than [id number] smoking/current smoker carries a diagnosis of COPD on Breo inhaler at home not on any home oxygen therapy presented to the hospital with abdominal pain found to have urinary tract infection and renal calculi that was operated on and pulmonary was called for management of her COPD. [facility] History Medical History: Reports:: Chronic Obstructive Pulmonary Disease (COPD), Home Oxygen, Hypertension, Myocardial Infarction Denies:: Cancer, Diabetes Mellitus Type 1, Diabetes Mellitus Type 2, MRSA, Seizures *Have you ever received a pneumonia vaccine?: No *Have you received a flu vaccine this season?: No Other Medical History: Reports: Arthritis Anesthesia experience/problems:: none Laterality Cases: Bilateral: Other (spine surgery) Other Surgeries: Yes: Appendectomy, Colonoscopy, Hysterectomy-Total, Hysterectomy-Partial, Other Amputation: No Fractures: No - *Social History Last grade of school completed: High school graduate Smoking Status: Current every day smoker # Packs/Day (cigarettes): 1 Alcohol Intake: never Substance Use Type: unknown *Occupational Status:: retired Housing: house Household Members: spouse, children *Travel in the last 8 weeks: None Family Hx:: Heart Attack, Hyperlipidemia, Hypertension ROS - Cons Denies anorexia, Denies body ache(s) - Eyes Denies blind spots, Denies blurry vision - ENT Denies abnormal hearing, Denies bleeding gums - Card Denies chest pain - Resp Respiratory: Reports shortness of breath, Denies change in phlegm color, Denies chest congestion, Denies cough, Denies non-productive cough - GI Gastrointestingal: Denies: bloating, change in bowel habits Meds Home Medications Medication Instructions Recorded Confirmed Type Albuterol Sulfate [Albuterol 2.5 mg IH Q6HP PRN 09/07/18 06/17/20 History 0.083% 2.5mg/3mL neb] Biotin 1,000 mcg PO DAILY 09/07/18 06/17/20 History Fluticasone/Vilanterol [Breo 1 puff IH DAILY 09/07/18 06/17/20 History Ellipta 200-25 Mcg INH] Oxycodone HCl [Oxycodone (IR) 10mg 10 mg PO TID 09/07/18 06/18/20 History Tab] Quetiapine Fumarate 50 mg PO HS 09/07/18 06/18/20 History Tiotropium [place] [Spiriva 1 puff IH DAILY 09/07/18 06/18/20 History Respimat] dilTIAZem HCL [Dilt-Xr] 120 mg PO DAILY 09/07/18 06/18/20 History hydroCHLOROthiazide [HCTZ 25mg 25 mg PO DAILY 09/07/18 06/18/20 History tab] Albuterol Sulfate [Albuterol 2 puffs IH Q4HP PRN 06/18/20 06/18/20 History Sulfate Hfa] Aspirin [Aspirin 81mg EC Tab] 81 mg PO DAILY 06/18/20 06/18/20 History Budesonide/Formoterol Fumarate 2 puffs IH BID 06/18/20 06/18/20 History [Budesonide-Formoterol 160-4.5] Allergies Allergy/AdvReac Type Severity Reaction Status Date / Time codeine [CODEINE] Allergy Unknown UNKNOWN Verified 10/09/18 02:04 morphine [MORPHINE] Allergy Unknown Verified 10/09/18 02:04 Sulfa (Sulfonamide Allergy Unknown UNKNOWN Verified 10/09/18 02:04 Antibiotics) [SULFA (SULFONAMIDE ANTIBIOTICS)] Exam - Constitutional Constitutional:: Present: no acute distress, comfortable - HENMT Exam HENMT: Present: normocephalic, atraumatic - Eye Exam Eyes:: Present: normal appearance both eyes and related structures - Neck Exam Neck:: Present: thyroid normal, no lymphadenopathy - Respiratory Exam Respiratory:: Present: able to speak in complete sentences, no respiratory distress, normal respiratory effort, wheezing - Cardiovascular Exam Cardiac:: Present: S1, S2 - GI Exam GI:: Present: soft - Skin Exam Skin: Present: warm, no rash - Neurological Exam Neurological: Present: alert, awake, normal cognition - Extremities Exam Extremities: Present: no cyanosis, no clubbing, no edema Internal Medicine - CN: Reslt - Labs CBC & Chem 7: 06/21/20 11:23 06/21/20 11:23 Labs: Short CBC 06/20
--- NOTE | 2020-06-21 09:44 | HMH.ACPN2 ---
Internal Medicine - PN: Subj *Date: 06/21/20 *Time: 08:45 Interval history: pt more alert today. pt states she is a smoker of many years. pt states she feels much better today Exam Vital signs and Labs for Last 24 Hours: Temp Pulse Resp BP Pulse Ox 98.5 F 84 14 133/65 86 L 06/21/20 04:00 06/21/20 06:21 06/21/20 04:00 06/21/20 04:00 06/21/20 06:21 Laboratory Results - last 24 hr 06/20/20 11:01: WBC 10.6, RBC 3.70 L, Hgb 11.7 L D, Hct 36.1 L, MCV 97.4, MCH 31.6 H, MCHC 32.4, RDW 15.5, Plt Count 238 D, MPV 8.2, Neut % (Auto) 67.6, Lymph % (Auto) 23.9, [place] % (Auto) 6.9, Eos % (Auto) 1.3, Baso % (Auto) 0.4, Neut # (Auto) 7.2, Lymph # (Auto) 2.5, [place] # (Auto) 0.7, Eos # (Auto) 0.1, Baso # (Auto) 0.0 06/20/20 11:01: Sodium 137, Potassium 3.8, Chloride 103, Carbon Dioxide 32 H D, Anion Gap 5.8, BUN 10 D, Creatinine 0.60, Estimated Creat Clear 42, Estimated GFR 97, Est GFR ( Amer) 117, Glucose 86, Calcium 8.7 I & O for Last 24 hours: Intake & Output 06/18/20 06/19/20 06/20/20 06/21/20 11:59 11:59 11:59 11:59 Intake Total 1300 / 1300 2336 / 2336 3023 / 3023 920 / 920 Output Total 300 / 300 450 / 450 700 / 700 2750 / 2750 Balance 1000 / 1000 1886 / 1886 2323 / 2323 -1830 / -1830 Weight 115 lb 8 oz 126 lb 4 oz 126 lb 1 oz - Constitutional no acute distress - *Routine HEENT Exam Head: Present: normocephalic Eye: Present: PERRL ENT: Present: mucous membranes moist - *Routine Neck Exam Present: supple. Absent: lymphadenopathy - *Routine Respiratory Exam Present: decreased breath sounds, wheezes - *Routine Cardiovascular Exam Present: RRR - *Routine Abdominal Exam Present: soft, normoactive bowel sounds. Absent: tenderness - *Routine Extremities Exam Present: normal capillary refill. Absent: cyanosis, clubbing, edema - *Routine Skin Exam Present: warm. Absent: rash - *Routine Neurological Exam Present: alert, oriented X3 - Routine Psychiatric Exam Present: normal affect Assessment and Plan (1) Left ureteral calculus Status: Acute Category: Medical Code(s): N20.1 - Calculus of ureter (2) UTI (urinary tract infection) Status: Acute Qualifiers: Urinary tract infection type: site unspecified Hematuria presence: with hematuria Qualified Code(s): N39.0 - Urinary tract infection, site not specified; R31.9 - Hematuria, unspecified Category: Medical Code(s): N39.0 - Urinary tract infection, site not specified (3) Back pain Status: Chronic Category: Medical Code(s): M54.9 - Dorsalgia, unspecified (4) Chronic pain Status: Chronic Category: Medical Code(s): G89.29 - Other chronic pain (5) UTI (urinary tract infection), bacterial Status: Acute Category: Medical Code(s): N39.0 - Urinary tract infection, site not specified; A49.9 - Bacterial infection, unspecified (6) Diastolic dysfunction Status: Acute Category: Medical Code(s): I51.89 - Other ill-defined heart diseases (7) E. coli UTI (urinary tract infection) Status: Acute Category: Medical Code(s): N39.0 - Urinary tract infection, site not specified; B96.20 - Unspecified Escherichia coli [E. coli] as the cause of diseases classified elsewhere (8) Acute exacerbation of chronic obstructive airways disease Status: Acute Category: Medical Code(s): J44.1 - Chronic obstructive pulmonary disease with (acute) exacerbation (9) HTN (hypertension) Status: Acute Qualifiers: Hypertension type: essential hypertension Qualified Code(s): I10 - Essential (primary) hypertension Category: Medical Code(s): I10 - Essential (primary) hypertension (10) LVH (left ventricular hypertrophy) Status: Acute Category: Medical Code(s): I51.7 - Cardiomegaly - Assessment and plan all Dx Assessment and Plan for all problems:: rounded with dr karlene momin orders per dr soler cardiology consult pulm consult darby consult poss dc tomorrow
--- NOTE | 2020-06-21 10:19 | HMH.PNCARD ---
Subjective Date: 06/21/20 Time: 10:00 Principal diagnosis: chf Interval history: This is a 80-year-old female who was admitted to the hospital with kidney stone. She is status post stent placement. She did go into an exacerbation of CHF over the weekend. The patient received Lasix for this and states that her shortness of breath is significantly improved. She states that she has felt so much better since having the Lasix. She denies any chest pain or pressure this morning. She denies any shortness of breath or edema. She denies any fever, chills, nausea, vomiting, diarrhea, PND or orthopnea. Exam Vital signs and Labs for Last 24 Hours: Temp Pulse Resp BP Pulse Ox 98.5 F 84 14 133/65 86 L 06/21/20 04:00 06/21/20 06:21 06/21/20 04:00 06/21/20 04:00 06/21/20 06:21 Laboratory Results - last 24 hr 06/20/20 11:01: WBC 10.6, RBC 3.70 L, Hgb 11.7 L D, Hct 36.1 L, MCV 97.4, MCH 31.6 H, MCHC 32.4, RDW 15.5, Plt Count 238 D, MPV 8.2, Neut % (Auto) 67.6, Lymph % (Auto) 23.9, [place] % (Auto) 6.9, Eos % (Auto) 1.3, Baso % (Auto) 0.4, Neut # (Auto) 7.2, Lymph # (Auto) 2.5, [place] # (Auto) 0.7, Eos # (Auto) 0.1, Baso # (Auto) 0.0 06/20/20 11:01: Sodium 137, Potassium 3.8, Chloride 103, Carbon Dioxide 32 H D, Anion Gap 5.8, BUN 10 D, Creatinine 0.60, Estimated Creat Clear 42, Estimated GFR 97, Est GFR ( Amer) 117, Glucose 86, Calcium 8.7 I & O for Last 24 hours: Intake & Output 06/18/20 06/19/20 06/20/20 06/21/20 23:59 23:59 23:59 23:59 Intake Total 2100 / 2100 3096 / 3096 2263 / 2383 120 / 120 Output Total 450 / 450 400 / 400 2950 / 3050 100 / 100 Balance 1650 / 1650 2696 / 2696 -687 / -667 20 / 20 Weight 115 lb 8 oz 126 lb 4 oz 126 lb 1 oz Narrative: Echo shows: 1. Mildly enlarged left atrium, normal left ventricular size, moderate concentric left ventricular hypertrophy, visually estimated ejection fraction 65% with no regional wall motion abnormality, grade 1 diastolic dysfunction seen without tissue Doppler evidence of raise left atrial pressure. 2. Mild mitral and tricuspid regurgitation. 3. No significant pericardial effusion noted. - Constitutional no acute distress, average body habitus - *Routine HEENT Exam Head: Present: normocephalic, atraumatic Eye: Present: EOMI, PERRL ENT: Present: mucous membranes moist - *Routine Neck Exam Present: supple, full ROM, normal carotid upstroke. Absent: JVD, carotid bruit, lymphadenopathy - *Routine Respiratory Exam Present: CTA bilaterally - *Routine Cardiovascular Exam Present: RRR, Normal S1, Normal S2. Absent: murmur - *Routine Abdominal Exam Present: soft, normoactive bowel sounds. Absent: tenderness, distended, rebound - *Routine Extremities Exam Present: full ROM, pulses intact, normal capillary refill. Absent: cyanosis, clubbing, edema - *Routine Skin Exam Present: intact, warm. Absent: erythema, rash - *Routine Neurological Exam Present: alert, oriented X3, CN II-XII intact. Absent: sensory deficit, motor deficit Progress Note: A&P (1) Left ureteral calculus Status: Acute (2) UTI (urinary tract infection) Status: Acute (3) Back pain Status: Chronic (4) Chronic pain Status: Chronic (5) UTI (urinary tract infection), bacterial Status: Acute (6) Diastolic dysfunction Status: Acute (7) E. coli UTI (urinary tract infection) Status: Acute (8) Acute exacerbation of chronic obstructive airways disease Status: Acute (9) HTN (hypertension) Status: Acute (10) LVH (left ventricular hypertrophy) Status: Acute (11) Diastolic CHF Status: Acute Assessment and Plan for All Diagnoses:: Plan: 1. Patient was admitted for a kidney stone. She is status post it placement. Will defer this to Dr. Au her primary care provider. 2. The patient did have an exacerbation of her diastolic congestive heart failure following her procedure. She was given Lasix and states that her shortne
--- NOTE | 2020-06-21 11:04 | P.PN_ITS ---
Internal Medicine - PN: Subj *Date: 06/21/20 *Time: 11:04 Exam Vital signs and Labs for Last 24 Hours: Temp Pulse Resp BP Pulse Ox 98.5 F 84 14 133/65 86 L 06/21/20 04:00 06/21/20 06:21 06/21/20 04:00 06/21/20 04:00 06/21/20 06:21 Laboratory Results - last 24 hr 06/20/20 11:01: WBC 10.6, RBC 3.70 L, Hgb 11.7 L D, Hct 36.1 L, MCV 97.4, MCH 31.6 H, MCHC 32.4, RDW 15.5, Plt Count 238 D, MPV 8.2, Neut % (Auto) 67.6, Lymph % (Auto) 23.9, [place] % (Auto) 6.9, Eos % (Auto) 1.3, Baso % (Auto) 0.4, Neut # (Auto) 7.2, Lymph # (Auto) 2.5, [place] # (Auto) 0.7, Eos # (Auto) 0.1, Baso # (Auto) 0.0 06/20/20 11:01: Sodium 137, Potassium 3.8, Chloride 103, Carbon Dioxide 32 H D, Anion Gap 5.8, BUN 10 D, Creatinine 0.60, Estimated Creat Clear 42, Estimated GFR 97, Est GFR ( Amer) 117, Glucose 86, Calcium 8.7 I & O for Last 24 hours: Intake & Output 06/18/20 06/19/20 06/20/20 06/21/20 23:59 23:59 23:59 23:59 Intake Total 2100 / 2100 3096 / 3096 2263 / 2383 120 / 120 Output Total 450 / 450 400 / 400 2950 / 3050 100 / 100 Balance 1650 / 1650 2696 / 2696 -687 / -667 Weight 52.39 kg 57.266 kg 57.181 kg Assessment and Plan (1) Left ureteral calculus Status: Acute Category: Medical Code(s): N20.1 - Calculus of ureter (2) UTI (urinary tract infection) Status: Acute Qualifiers: Urinary tract infection type: site unspecified Hematuria presence: with hematuria Qualified Code(s): N39.0 - Urinary tract infection, site not specified; R31.9 - Hematuria, unspecified Category: Medical Code(s): N39.0 - Urinary tract infection, site not specified (3) Back pain Status: Chronic Category: Medical Code(s): M54.9 - Dorsalgia, unspecified (4) Chronic pain Status: Chronic Category: Medical Code(s): G89.29 - Other chronic pain (5) UTI (urinary tract infection), bacterial Status: Acute Category: Medical Code(s): N39.0 - Urinary tract infection, site not specified; A49.9 - Bacterial infection, unspecified (6) Diastolic dysfunction Status: Acute Category: Medical Code(s): I51.89 - Other ill-defined heart diseases (7) E. coli UTI (urinary tract infection) Status: Acute Category: Medical Code(s): N39.0 - Urinary tract infection, site not specified; B96.20 - Unspecified Escherichia coli [E. coli] as the cause of diseases classified elsewhere (8) Acute exacerbation of chronic obstructive airways disease Status: Acute Category: Medical Code(s): J44.1 - Chronic obstructive pulmonary disease with (acute) exacerbation (9) HTN (hypertension) Status: Acute Qualifiers: Hypertension type: essential hypertension Qualified Code(s): I10 - Essential (primary) hypertension Category: Medical Code(s): I10 - Essential (primary) hypertension (10) LVH (left ventricular hypertrophy) Status: Acute Category: Medical Code(s): I51.7 - Cardiomegaly (11) Diastolic CHF Status: Acute Category: Medical Code(s): I50.30 - Unspecified diastolic (congestive) heart failure The patient's infection will respond to the chosen ABx?: Yes Is the patient receiving the right drug, dose, and route?: Yes Could a more targeted ABx be ordered?: No (CX SENSITIVE TO ROCEPHIN)
[2020-06-21 11:35] LABS: Chloride 95 mmol/L (98-107)
[2020-06-21 11:36] LABS: Sodium 137 mmol/L (136-145)
[2020-06-21 11:38] LABS: Blood Urea Nitrogen 9 mg/dl (7-17); Creatinine Clearance Estimated 42 mL/min (50-200); Estimated Glomerular Filt Rate 97 ml/min (>60); GFR (African American) 117 ML/MIN (>60)
[2020-06-21 11:39] LABS: Anion Gap 5.5 mEq/L (5-15); Basophils % 0.3 % (0.1-2.0); Calcium 8.6 mg/dl (8.4-10.2); Carbon Dioxide 39 mmol/L (22.0-30.0); Eosinophils # 0.3 K/mm3 (0.0-0.4); Eosinophils % 2.7 % (0.1-12.0); Glucose 129 mg/dl (74-100); Hematocrit 34.4 % (37.0-47.0); Hemoglobin 11.4 g/dL (12.2-16.2); Lymphocytes # 1.9 K/mm3 (0.7-4.5); Lymphocytes % 20.2 % (10-50); Mean Corpuscular HGB Conc 33.1 g/dL (31.8-35.4); Mean Corpuscular Hemoglobin 31.6 pg (27.0-31.2); Mean Corpuscular Volume 95.4 fl (81-99); Mean Platelet Volume 8.1 fl (7.4-10.4); Monocytes # 0.6 K/mm3 (0.1-1.0); Monocytes % 6.7 % (1.7-9.3); Neutrophils # 6.4 K/mm3 (1.8-7.8); Neutrophils % 70.1 % (37.0-80.0); Platelet Count 246 K/mm3 (142-424); Red Blood Count 3.61 M/mm3 (4.20-5.40); Red Cell Distribution Width 15.8 % (11.5-17.5); White Blood Count 9.2 K/mm3 (4.8-10.8)
[2020-06-21 11:41] LABS: Potassium 2.5 mmoL/L (3.5-5.1)
--- NOTE | 2020-06-21 12:00 | PC.NURSE ---
DR. DAY NOTIFIED OF PT POTASSIUM. NEW ORDERS FOR X2 RUNS OF 20 MEQ AND REPEATED BMP @ 1700
[2020-06-21 17:16] LABS: Anion Gap 5.9 mEq/L (5-15); Blood Urea Nitrogen 7 mg/dl (7-17); Calcium 8.9 mg/dl (8.4-10.2); Carbon Dioxide 37 mmol/L (22.0-30.0); Chloride 97 mmol/L (98-107); Creatinine Clearance Estimated 42 mL/min (50-200); Estimated Glomerular Filt Rate 97 ml/min (>60); GFR (African American) 117 ML/MIN (>60); Glucose 121 mg/dl (74-100); Sodium 137 mmol/L (136-145)
[2020-06-21 17:17] LABS: Potassium 2.9 mmoL/L (3.5-5.1)
--- NOTE | 2020-06-21 17:32 | PC.NURSE ---
DR. DE LUNA CALLED AND REPORT GIVEN OF POTASSIUM 2.9 ORDERS FOR 40 MEQ PO NOW AND AGAIN AT BEDTIME.
[2020-06-22 04:00] VITALS: BP 175/68; PULSE 71; RESP 20; TEMP 36.6; O2SAT 94
--- NOTE | 2020-06-22 04:38 | PC.NURSE ---
Pt has slept throughout this shift, A&O x4, BLT lungs with inspiratory and expiratory rhonchi, Wheezing noted, Bowel sounds present in all 4 quadrants, Pt had an IV restart this shift, Pt medicated per JUL for pain. Pt on 3L NC at bedtime, Pt denies SOA, headache, N/V, or edema
[2020-06-22 05:00] VITALS: BMI 19.8
[2020-06-22 06:19] VITALS: PULSE 75; PULSE 78; O2SAT 98
[2020-06-22 07:17] LABS: Basophils # 0.1 K/mm3 (0-0.2); Basophils % 0.6 % (0.1-2.0); Eosinophils # 0.4 K/mm3 (0.0-0.4); Eosinophils % 4.6 % (0.1-12.0); Hematocrit 37.3 % (37.0-47.0); Hemoglobin 12.3 g/dL (12.2-16.2); Lymphocytes # 3.1 K/mm3 (0.7-4.5); Lymphocytes % 35.4 % (10-50); Mean Corpuscular HGB Conc 32.9 g/dL (31.8-35.4); Mean Corpuscular Hemoglobin 31.5 pg (27.0-31.2); Mean Corpuscular Volume 95.8 fl (81-99); Mean Platelet Volume 7.7 fl (7.4-10.4); Monocytes # 0.6 K/mm3 (0.1-1.0); Monocytes % 7.3 % (1.7-9.3); Neutrophils # 4.5 K/mm3 (1.8-7.8); Neutrophils % 52.1 % (37.0-80.0); Platelet Count 291 K/mm3 (142-424); Red Blood Count 3.89 M/mm3 (4.20-5.40); Red Cell Distribution Width 15.9 % (11.5-17.5); White Blood Count 8.7 K/mm3 (4.8-10.8)
[2020-06-22 07:19] LABS: Chloride 101 mmol/L (98-107); Potassium 3.8 mmoL/L (3.5-5.1); Sodium 139 mmol/L (136-145)
[2020-06-22 07:22] LABS: Anion Gap 6.8 mEq/L (5-15); Blood Urea Nitrogen 6 mg/dl (7-17); Calcium 9.1 mg/dl (8.4-10.2); Carbon Dioxide 35 mmol/L (22.0-30.0); Creatinine Clearance Estimated 39 mL/min (50-200); Estimated Glomerular Filt Rate 97 ml/min (>60); GFR (African American) 117 ML/MIN (>60); Glucose 102 mg/dl (74-100)
[2020-06-22 08:00] VITALS: BP 143/65; PULSE 80; RESP 18; TEMP 36.7; O2SAT 92
--- NOTE | 2020-06-22 08:48 | HMH.DCSUM ---
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 Her work-up in the ER included a CT abdomen. Findings are as below IMPRESSION: 1. 6 mm left ureteropelvic junction stone with mild left hydronephrosis and mild stranding of the left perinephric renal fat. 2. Coarse calcification within the pancreas which may be due to chronic pancreatitis with mild prominence of the pancreatic duct 3. Cholelithiasis 4. Extensive postsurgical changes of the lumbar spine with artifact. 5. Moderate amount of retained colonic feces with colonic diverticulosis. Mild thickening of the descending and sigmoid colon nonspecific and may be due to nondistention versus mild colitis Patient was also found to have an elevated white count and urinalysis suggesting a UTI. The urology service was consulted. We will admit her for IV antibiotics, pain control, and further treatment of the 6 mm stone at the left UPJ. Patient has some comorbid COPD and chronic pain, she has had several spinal surgeries done. Hospital Course Hospital Course: Urology has seen and recommends: Patient is status post left ureteral stone manipulation and left stent placement earlier today. She tolerated well. Basic metabolic profile and CBC ordered for the morning. Hopefully her white count is decreasing and if she feels well may be discharged home to follow-up in the office with me next week. Operative findings:: Left proximal ureteral stone was very hazy and manipulated easily back into the left renal pelvis and left stent placed with out evidence of pyelonephrosis. There was some denser appearing fluid from the ureteral stent after placement however. Operative note:: Patient taken to the operating room after informed consent was obtained. She was placed on the operating table in the supine position and general anesthesia administered. She was then placed into the dorsal lithotomy position and prepped and draped in the standard surgical fashion. She was on preoperative IV antibiotics. The 22 [place] cystoscope passed into the urethra and into the bladder without difficulty. The bladder was examined in a systematic fashion. There is no evidence of mucosal abnormalities. There was a little bit of debris and the reddish appearing sediment at the bladder base. No diverticula or trabeculation was noted. The ureteral orifices in their normal anatomic position. The left ureteral orifice was cannulated with a 5 [place] open-ended ureteral catheter and passed proximally to the level of the hazy calcification of the proximal ureter. This calcification was manipulated easily back into the left renal pelvis. The guidewire then passed through the ureteral catheter and ureteral cath removed. A 4.8 x 24 [place] stent then passed over the guidewire and the guidewire removed under fluoroscopy. The string was also removed. There was a good curl noted proximally and distally. The urine from the stent after placement was a little thicker and slightly reddish tint to it. There is no evidence of pus. Patient tolerated procedure well. 06/18/20ECHO: Conclusion 1. Mildly enlarged left atrium, normal left ventricular size, moderate concentric left ventricular hypertrophy, visually estimated ejection fraction 65% with no regional wall motion abnormality, grade 1 diastolic dysfunction seen without tissue Doppler evidence of raise left atrial pressure. 2. Mild mitral and tricuspid regurgitation. 3. No significant pericardial effusion noted. Electronically signed by : Garry Kay 06/18/20: Cystogram IMPRESSION: Status post left ureteral stent placement Dictated by: Rafi 06/20/20 CXR: IMPRESSION: COPD. No discrete focal pneumonia/Nothing definitely acute- . Only note some minimal areas of minimal linear scarring and atelectasis towards luisa
--- NOTE | 2020-06-22 10:03 | SW/DCPLANNER ---
I have spoke with this patient this morning regarding discharge plans. Patient stated that she will not need anything at time of discharge. Patient is already established with home oxygen thru [facility]. Patient stated that she has no further needs at this time. Patient will discharge home today.
--- NOTE | 2020-06-22 12:20 | PC.NURSE ---
1133 Discharge education provided to pt and , questions encouraged and answered. Pt aware of all follow up appointments.
== END 2020-06-22 12:09 | disposition home or self-care (01) ==
LOC: ER 16:37 → 2ND 19:25
PROVIDERS: Emergency Medicine; Nurse Practitioner Family; Urology; Admitting Provider Family Medicine; Emergency Provider Emergency Medicine; PCP Family Medicine; Visit Provider Family Medicine
DX: N20.1 Calculus of ureter (principal); I11.0 Hypertensive heart disease with heart failure; I50.31 Acute diastolic (congestive) heart failure; I25.10 Atherosclerotic heart disease of native coronary artery without angina pectoris; I25.2 Old myocardial infarction; Z72.0 Tobacco use; J44.1 Chronic obstructive pulmonary disease with (acute) exacerbation; Z99.81 Dependence on supplemental oxygen; Z79.51 Long term (current) use of inhaled steroids; Z79.82 Long term (current) use of aspirin; Z79.899 Other long term (current) drug therapy; Z88.2 Allergy status to sulfonamides; Z88.5 Allergy status to narcotic agent; N39.0 Urinary tract infection, site not specified; G89.29 Other chronic pain; Z23 Encounter for immunization
CPT/HCPCS: 52330; 52332; G0008; 36415; 71046; 74177; 74430; 80048; 80053; 81001; 82150; 83690; 85007; 85025; 86328; 87086; 87088; 87186; 90686; 93005; 93306; 94640; 94761; 96365; 96375; 96376; 99284; C2617; G0378; J2405; Q9967; U0003

== ENCOUNTER → 2020-06-29 11:46 | Outpatient (CLI) | payer MEDICARE, BC, SELFPAY ==
--- NOTE | 2020-06-29 11:56 | XR_ITS ---
PROCEDURE: XR KUB CLINICAL INDICATION: URETERAL STONE COMPARISON: CT CT ABDOMEN PELVIS W CON from 06/17/2020 CR XR CHEST 2V from 06/20/2020 FINDINGS: There is a left ureteral stent in place. The proximal aspect overlies left upper quadrant and distal aspect overlies the lower pelvic region. 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 This measures approximately 1.5 cm. There has been prior extensive lumbar surgery with inter pedicular screws from L1-S1. There is an epidural stimulator device with the power pack in the right lower quadrant. Degenerative disc disease noted at T12-L1 and L5-S1. Degenerative changes also noted of the hips. IMPRESSION: Left ureteral stent in place with other nonacute findings as described above.. Dictated by: Raymundo Mckee MD 06/29/2020 12:28 Raymundo Mckee MD in OV 06/29/2020 12:28
== END ==
PROVIDERS: PCP Family Medicine; Visit Provider Urology
DX: N20.1 Calculus of ureter (principal)
CPT/HCPCS: 74018

== ENCOUNTER 2020-07-02 10:46 | Day surgery (SDC) | payer MEDICARE, BC, SELFPAY ==
[2020-07-01 09:39] VITALS: BMI 42.3
[2020-07-02] VITALS (9 sets, daily range): BP systolic 110–180; BP diastolic 56–95; PULSE 77–102; RESP 16–20; TEMP 35.9–36.8; O2SAT 95–100
[2020-07-02 11:23] LABS: Basophils # 0.1 K/mm3 (0-0.2); Eosinophils # 0.7 K/mm3 (0.0-0.4); Hematocrit 42.8 % (37.0-47.0); Hemoglobin 13.5 g/dL (12.2-16.2); Lymphocytes # 2.8 K/mm3 (0.7-4.5); Lymphocytes % 30.8 % (10-50); Mean Corpuscular HGB Conc 31.4 g/dL (31.8-35.4); Mean Corpuscular Hemoglobin 30.7 pg (27.0-31.2); Mean Corpuscular Volume 97.5 fl (81-99); Mean Platelet Volume 7.6 fl (7.4-10.4); Monocytes # 0.4 K/mm3 (0.1-1.0); Monocytes % 4.5 % (1.7-9.3); Neutrophils % 55.7 % (37.0-80.0); Platelet Count 439 K/mm3 (142-424); Red Blood Count 4.39 M/mm3 (4.20-5.40); White Blood Count 8.9 K/mm3 (4.8-10.8)
[2020-07-02 11:32] LABS: Anion Gap 9.9 mEq/L (5-15); Blood Urea Nitrogen 17 mg/dl (7-17); Carbon Dioxide 32 mmol/L (22.0-30.0); Chloride 105 mmol/L (98-107); Estimated Glomerular Filt Rate 69 ml/min (>60); GFR (African American) 84 ML/MIN (>60); Glucose 117 mg/dl (74-100); Potassium 4.9 mmoL/L (3.5-5.1); Sodium 142 mmol/L (136-145)
[2020-07-02 11:42] LABS: Coronavirus 19 IgG Antibody Negative (Negative); Coronavirus 19 IgM Antibody Negative (Negative)
--- NOTE | 2020-07-02 13:16 | HMH.ANESCL ---
[facility] Anesthesia Checklist - Patient Identification Patient Identification: Arm Band, Verbal (Name & ) - Structural Data Admitted From: Home Planned Operative Procedure/s: eswl Consent for Planned Operative Procedure(s) Verified: Yes Verified Documents: Surgical Consent - Additional verifications Anesthesia Reactions: No Hx Blood Transfusions: No Blood Transfusion Reaction: No - Anesthesia Plan Anesthesia Risk discussed: Yes Anesthesia Plan: Patient unable to respond/answer ASA Class: III Anesthesia Type: General [facility] History I have reviewed the patient's past medical history: Yes Medical History: Reports:: Chronic Obstructive Pulmonary Disease (COPD), Home Oxygen, Hypertension, Myocardial Infarction Denies:: Cancer, Diabetes Mellitus Type 1, Diabetes Mellitus Type 2, MRSA, Seizures *Have you ever received a pneumonia vaccine?: Yes *Have you received a flu vaccine this season?: Yes Other Medical History: Reports: Arthritis. Denies: Blood Transfusion Reaction Anesthesia experience/problems:: none Laterality Cases: Bilateral: Other Other Surgeries: Yes: Appendectomy, Colonoscopy, Hysterectomy-Total, Hysterectomy-Partial, Other Amputation: No Fractures: No - *Social History Smoking Status: Current every day smoker Tobacco Type: cigarettes # Packs/Day (cigarettes): 1 Alcohol Intake: never Substance Use Type: denies use, unknown *Occupational Status:: retired Housing: house Household Members: spouse, children *Travel in the last 8 weeks: None Family Hx:: Heart Attack, Hyperlipidemia, Hypertension
--- NOTE | 2020-07-02 16:22 | HMH.ANESI ---
[facility] Anesthesia Record Part I Intake, IV Amount: 600 Estimated blood loss (mL): 0 Urine output (mL): 0 Blood Pressure: 110/56 SaO2: 100 Pulse Rate: 80 Respiratory Rate: 18 Temperature: 97 F Patient is:: Awake Stable to PACU at:: 16:23
--- NOTE | 2020-07-02 16:32 | P.OP_ITS ---
Date of procedure: 07/02/20 Pre-op Diagnosis:: 6 mm left lower pole stone Post-op Diagnosis:: Same Procedure performed:: Left ESWL Surgeon:: Rick Au MD HOSPICE SPIRITUAL CARE COORDINATOR:: Other (mickey sams) Anesthesia: GETA Estimated blood loss (mL): 0 Clinical Note:: 80-year-old white female with recent left renal colic. She was admitted to the hospital and had a elevated white count taken to the operating room for left stent placement at that time. She has finished her course of antibiotics and presents for left ESWL. She is tolerating her stent well. Operative findings:: 6 mm stone in the left lower pole. Left ureteral stent is in good position. Operative note:: Patient taken to the operating room after informed consent was obtained. She was placed on the operating table in the supine position and general anesthesia administered. Due to her severe kyphosis she was padded and positioned very gently. Preoperative antibiotics and sequential compression devices placed. A leg roll was placed under her knees under heels placed onto a pillow. She was padded appropriately and the lithotripter was focused onto the 6 mm left lower pole stone and 3000 shockwaves were delivered to the stone with good fragmentation. Patient tolerated procedure well there are no complications. Condition: stable Disposition: PACU Specimens:: None Complications:: None
== END 2020-07-02 17:28 | disposition home or self-care (01) ==
PROVIDERS: PCP Family Medicine; Visit Provider Urology
PROC: (CPT 50590; principal; 2020-07-02 13:00)
DX: N20.0 Calculus of kidney (principal); J44.9 Chronic obstructive pulmonary disease, unspecified; I10 Essential (primary) hypertension; I25.10 Atherosclerotic heart disease of native coronary artery without angina pectoris; M19.90 Unspecified osteoarthritis, unspecified site; Z99.81 Dependence on supplemental oxygen; Z90.49 Acquired absence of other specified parts of digestive tract; Z72.0 Tobacco use; Z82.49 Family history of ischemic heart disease and other diseases of the circulatory system; Z83.438 Family history of other disorder of lipoprotein metabolism and other lipidemia; Z88.6 Allergy status to analgesic agent; Z88.2 Allergy status to sulfonamides
CPT/HCPCS: 50590; 36415; 80048; 85025; 86328; 96374; J0330

== ENCOUNTER 2020-07-26 09:04 | Day surgery (SDC) | payer MEDICARE, BC, SELFPAY ==
[2020-07-22 13:17] VITALS: BMI 19.7
[2020-07-26 10:10] VITALS: BP 141/96; PULSE 91; RESP 18; TEMP 36.5; O2SAT 97
[2020-07-26 11:05] LABS: Coronavirus 19 IgG Antibody Negative (Negative); Coronavirus 19 IgM Antibody Negative (Negative)
[2020-07-26 11:55] VITALS: BP 177/91; PULSE 89; RESP 18; TEMP 37.3; O2SAT 93
[2020-07-26 12:09] VITALS: BP 177/91; PULSE 89; RESP 18; O2SAT 93
--- NOTE | 2020-07-26 12:55 | P.OP_ITS ---
Date of procedure: 07/26/20 Pre-op Diagnosis:: Left nephrolithiasis status post previous left stent and left ESWL Post-op Diagnosis:: Same Procedure performed:: Cystoscopy with left ureteral stent removal Surgeon:: Rick Au MD Anesthesia: local Estimated blood loss (mL): 0 Clinical Note:: Patient is a 80-year-old white female with previous history of left proximal ureteral stone status post stone manipulation and left stent placement. She then underwent later left ESWL with resolution of the previously noted stone. She presents today for stent removal. Operative findings:: Stent noted from the left ureteral orifice. Operative note:: Patient taken to the operating suite after informed consent was obtained. On the stretcher she was positioned in the frog-leg position and prepped and draped in the standard surgical fashion and 2% lidocaine placed into the urethra. The 16 [place] cystoscope then passed into the urethra and into the bladder without difficulty. Stent was noted from the left ureteral orifice. Flexible graspers were placed through the scope and the stent grasped and removed without diff iculty. The patient tolerated procedure well there are no complications. Condition: stable Disposition: same day Specimens:: Left ureteral stent Complications:: None
== END 2020-07-26 12:10 | disposition home or self-care (01) ==
LOC: OUTP 09:07
PROVIDERS: PCP Family Medicine; Visit Provider Urology
PROC: (CPT 52310; principal; 2020-07-26 09:30)
DX: N20.1 Calculus of ureter (principal); D64.9 Anemia, unspecified; J44.9 Chronic obstructive pulmonary disease, unspecified; I11.0 Hypertensive heart disease with heart failure; I50.30 Unspecified diastolic (congestive) heart failure; Z88.6 Allergy status to analgesic agent; Z88.5 Allergy status to narcotic agent; Z88.2 Allergy status to sulfonamides; Z79.899 Other long term (current) drug therapy
CPT/HCPCS: 52310; 36415; 86328

== ENCOUNTER → 2021-12-06 15:13 | Outpatient (CLI) | payer MEDICARE, SELFPAY ==
--- NOTE | 2021-12-06 15:26 | XR_ITS ---
FINAL REPORT CLINICAL HISTORY: SOB COMPARISON: 05/23/2020 FINDINGS: Two views of the chest were obtained. The heart size and pulmonary vascularity are within normal limits. The mediastinum is normal. No acute pulmonary abnormality is identified. There is no pneumothorax. The bony thorax is intact. Spinal stimulator is present. There are postoperative changes in the cervical and lumbar spine. IMPRESSION: No active cardiopulmonary disease. Reviewed, Interpreted and Dictated by Bassem Hatch III, MD Transcribed by Jessica Lechuga Authenticated and [facility]
== END ==
PROVIDERS: PCP Family Medicine; Visit Provider Internal Medicine Pulmonary Disease
DX: R06.02 Shortness of breath (principal)
CPT/HCPCS: 71046

== ENCOUNTER → 2022-01-09 14:15 | Outpatient (CLI) | payer MEDICARE, SELFPAY ==
--- NOTE | 2022-01-09 14:16 | CT_ITS ---
FINAL REPORT TECHNIQUE: Axial imaging of the chest was obtained without contrast. Reformatted images were also obtained and reviewed.This study was performed with techniques to keep radiation doses as low as reasonably achievable, (ALARA). Individualized dose reduction technique using automated exposure control or adjustment of mA and/or kV according to the patient's size were employed. CLINICAL HISTORY: nodule f/u FINDINGS: There is streak artifact secondary to a stimulator device in the mid-upper thoracic spine and from posterior fusion hardware in the lower thoracolumbar spine. There are bilateral subglandular breast implants. There is no axillary adenopathy. There is no hilar or mediastinal adenopathy. Heart size is normal. There is no pericardial or pleural effusion. Limited images of the upper abdomen are unremarkable. There is a spiculated mass measuring 3 cm in diameter in the inferior right upper lobe which is contiguous with the anterior right hilum. This is best seen on axial images 121-135 of series 3. Findings are highly concerning for neoplasia. IMPRESSION: 3 cm inferior right upper lobe mass, highly concerning for neoplasia. Recommend PET-CT and biopsy if not already performed. Reviewed, Interpreted and Dictated by Oliverio Chu MD Transcribed by Patricia Lucero Authenticated and . [facility]
== END ==
PROVIDERS: PCP Family Medicine; Visit Provider Internal Medicine Pulmonary Disease
DX: R91.8 Other nonspecific abnormal finding of lung field (principal)
CPT/HCPCS: 71250

== ENCOUNTER 2022-01-26 14:56 | Inpatient (IN) | payer MEDICARE, SELFPAY ==
[2022-01-26] VITALS (9 sets, daily range): BP systolic 159–181; BP diastolic 55–140; PULSE 83–107; RESP 18–26; TEMP 36.8–37.1; O2SAT 92–96; BMI 20.3; BMI 43.7
--- NOTE | 2022-01-26 14:53 | ECG_ITS ---
APPROVED REPORT Exam: Resting ECG HR:99 bpm ECG Measurements Heart Rate 99 AXES RI 181 P 80 QRSd 77 QRS -52 QT 326 T 77 QTc 382 Conclusion SINUS RHYTHM WITH OCCASIONAL SUPRAVENTRICULAR PREMATURE COMPLEXES LAE with LAD Late R wave progression - old finding ABNORMAL ECG UNCONFIRMED REPORT Electronically signed by : Jose Gooden MD 01/29/2022 15:30:05
--- NOTE | 2022-01-26 14:57 | HMH.EDGENADL ---
Discharge Plan Disposition Patient Disposition: Admitted as Observation Condition: Fair Prescriptions Prescriptions: No Action azithromycin 250 mg tablet See Rx Instructions PO .COMPLEX Qty: 6 0RF Rx Instructions: For 250 mg dose pack: take 500 mg today (day 1), then 250 mg for 4 days (days 2-5) PO prednisone 20 mg tablet 40 mg PO DAILY 5 Days Qty: 10 0RF Breztri Aerosphere 160-9-4.8 mcg/actuation HFA aerosol inhaler 2 inh IH BID 90 Days Qty: 10.7 3RF albuterol sulfate 90 mcg/actuation HFA aerosol inhaler 2 inh IH Q6H PRN (Reason: shortness of breath or wheezing) 90 Days Qty: 8.5 1RF ipratropium-albuterol 0.5 mg-3 mg(2.5 mg base)/3 mL solution for nebulization 3 ml IH QID PRN (Reason: shortness of breath or wheezing) 90 Days Qty: 360 3RF hydrocodone-acetaminophen 1 TAB tablet 1 tab PO Q6HP PRN (Reason: Moderate To Severe Pain) Qty: 10 0RF hydrochlorothiazide 25 MG tablet 25 mg PO DAILY quetiapine 50 MG tablet 50 mg PO HS Referrals Follow up/Referrals: Micheline Dumont [Primary Care Provider] - See instructions Clinical Impressions Clinical Impression: Community acquired pneumonia, Acute exacerbation of chronic obstructive pulmonary disease, Chronic respiratory failure with hypoxia and hypercapnia Discharge ED Provider: William Bone General Adult HPI General Chief complaint: Shortness of Breath/Dyspnea Stated complaint: WEAKNESS Time Seen by Provider: 01/26/22 15:15 History of Present Illness HPI narrative: Brought in by ambulance. Patient states she had a breathing spell . States that she was just sitting at home and had increased difficulty breathing. She has been wheezing. States that she has a cough. She has been nauseated yesterday without vomiting. No fever. No chest pain. No diarrhea. She has COPD. She is on oxygen at home, 3 L. She says she has a nebulizer but has not used any treatments today. EMS reports that she also told them that she probably has lung cancer and is not doing anything about it . EMS also reported to nursing staff that the patient was smoking with her oxygen on when they arrived. Related Data Home Medications Medication Instructions Recorded Confirmed hydrochlorothiazide 25 mg tablet 25 mg PO DAILY Fluid 09/07/18 01/09/22 quetiapine 50 mg tablet 50 mg PO HS MOOD 09/07/18 01/09/22 Previous Rx's Medication Instructions Recorded hydrocodone 5 mg-acetaminophen 325 1 tab PO Q6HP PRN Moderate To 07/05/20 mg tablet Severe Pain #10 tabs albuterol sulfate 90 mcg/actuation 2 inh inhalation Q6H PRN shortness 12/06/21 aerosol inhaler of breath or wheezing 90 days #8.5 grams azithromycin 250 mg tablet See Rx Instructions PO .COMPLEX #6 12/06/21 tabs budesonide 160 mcg-glycopyr 9 2 inh inhalation BID 90 days #10.7 12/06/21 mcg-formot 4.8 mcg/actuation HFA grams inhaler (Breztri Aerosphere) ipratropium 0.5 mg-albuterol 3 mg 3 ml inhalation QID PRN shortness 12/06/21 (2.5 mg base)/3 mL nebulization of breath or wheezing 90 days #360 soln mL prednisone 20 mg tablet 40 mg PO DAILY 5 days #10 tabs 12/06/21 Allergies Allergy/AdvReac Type Severity Reaction Status Date / Time codeine [CODEINE] Allergy Unknown UNKNOWN Verified 01/09/22 15:16 morphine [MORPHINE] Allergy Unknown Unknown Verified 01/09/22 15:16 allergy reaction Sulfa (Sulfonamide Allergy Unknown UNKNOWN Verified 01/09/22 15:16 Antibiotics) [SULFA (SULFONAMIDE ANTIBIOTICS)] PFSH PFSH Medical History Chronic hypoxemic respiratory failure Dyspnea on exertion History of COPD Lung mass On home oxygen therapy Pulmonary emphysema Smoking greater than 30 pack years Surgical History (Updated 01/20/22 @ 09:36 by Debbie Rogers RT) H/O cervical spine surgery Family History (Updated 01/20/22 @ 09:36 by Debbie Rogers RT) Other Heart attack Social History Smo
--- NOTE | 2022-01-26 15:09 | XR_ITS ---
FINAL REPORT CLINICAL HISTORY: SOA, smoker COMPARISON: December 06, 2021 FINDINGS: The heart size is normal. The mediastinum is normal. There is mild bibasilar atelectasis or pneumonia. There are no pleural effusions. There is no pneumothorax. A presumed spinal stimulator is present. There is postoperative change in the lower cervical spine. IMPRESSION: Mild bibasilar atelectasis or pneumonia. Reviewed, Interpreted and Dictated by Bassem Hatch III, MD Transcribed by Bernabe Kay Authenticated and [facility]
--- NOTE | 2022-01-26 15:09 | PC.NURSE ---
MERY FLORES at
--- NOTE | 2022-01-26 15:17 | PC.NURSE ---
RADIOLOGY AT BEDSIDE
--- NOTE | 2022-01-26 15:19 | PC.NURSE ---
RADIOLOGY COMPLETED AT BEDSIDE
--- NOTE | 2022-01-26 15:19 | PC.NURSE ---
pt sister at
--- NOTE | 2022-01-26 15:20 | PC.NURSE ---
notified RT of abg order
[2022-01-26 15:23] LABS: Basophils # 0.1 K/mm3 (0-0.2); Basophils % 0.4 % (0.1-2.0); Chloride 95 mmol/L (98-107); Eosinophils # 0.2 K/mm3 (0.0-0.4); Eosinophils % 0.7 % (0.1-12.0); Hematocrit 36.9 % (37.0-47.0); Hemoglobin 12.2 g/dL (12.2-16.2); Lymphocytes # 1.1 K/mm3 (0.7-4.5); Lymphocytes % 4.1 % (10-50); Mean Corpuscular HGB Conc 33.1 g/dL (31.8-35.4); Mean Corpuscular Hemoglobin 33.7 pg (27.0-31.2); Mean Platelet Volume 8.7 fl (7.4-10.4); Monocytes # 0.9 K/mm3 (0.1-1.0); Monocytes % 3.3 % (1.7-9.3); Neutrophils # 24.9 K/mm3 (1.8-7.8); Neutrophils % 91.4 % (37.0-80.0); Platelet Count 288 K/mm3 (142-424); Red Blood Count 3.62 M/mm3 (4.20-5.40); Red Cell Distribution Width 15.9 % (11.5-17.5); Sodium 137 mmol/L (136-145); White Blood Count 27.2 K/mm3 (4.8-10.8)
[2022-01-26 15:24] LABS: Potassium 4.3 mmoL/L (3.5-5.1)
[2022-01-26 15:26] LABS: Alanine Aminotransferase 17 U/L (12-78); Albumin Level 3.6 g/dl (3.5-5.0); Albumin/Globulin Ratio 1.2 (1.1-1.8); Alkaline Phosphatase 50 U/L (38-126); Aspartate Amino Transferase 41 U/L (14-36); Bilirubin,Total 0.8 mg/dl (0.2-1.3); Blood Urea Nitrogen 15 mg/dl (7-17); Calcium 8.6 mg/dl (8.4-10.2); Creatinine Clearance Estimated 38 mL/min (50-200); Estimated Glomerular Filt Rate 154 ml/min (>60); GFR (African American) 186 ML/MIN (>60); Glucose 133 mg/dl (74-100); Total Protein,Serum 6.6 g/dl (6.3-8.2)
--- NOTE | 2022-01-26 15:26 | PC.NURSE ---
RT at BS
[2022-01-26 15:28] LABS: Lactic Acid 0.9 mmol/L (0.7-2.1)
[2022-01-26 15:32] LABS: MANUAL DIFFERENTIAL MANUAL DIFFERENTIAL (MANUAL DIFF)
[2022-01-26 15:33] LABS: Anion Gap 4.3 mEq/L (5-15); Carbon Dioxide 42 mmol/L (22.0-30.0)
[2022-01-26 15:34] LABS: ABG Base Excess 11.5 mmol/L (-2.4-2.3); ABG HCO3 37.1 mmhg (22.0-26.0); ABG Oxygen Saturation 95 % (90-100); ABG PH 7.35 mmol/L (7.35-7.45); ABG PO2 75.6 mmhg (80-100); ABG TCO2 39.2 mmhg (23-27); Oxygen 3 %
[2022-01-26 15:35] LABS: Allen's Test acceptable; Source Right Radial
[2022-01-26 15:37] LABS: ABG PCO2 68.7 mmhg (35.0-45.0)
--- NOTE | 2022-01-26 15:48 | PC.NURSE ---
notified ER of critical abg results
--- NOTE | 2022-01-26 15:56 | PC.NURSE ---
HELPED PT TO THE BATHROOM. GOT URINE SAMPLE FROM HER AND HELPED BACK TO BED
--- NOTE | 2022-01-26 16:12 | PC.NURSE ---
second set of blood cultures and covid swab sent to lab at this time
--- NOTE | 2022-01-26 16:21 | PC.NURSE ---
contacted pharmacy for nicotine patch, spoke with papo
[2022-01-26 16:38] LABS: Coronavirus 19, PCR Not Detected (NotDetected); Influenza A, PCR Not Detected (NotDetected); Influenza B, PCR Not Detected (NotDetected)
--- NOTE | 2022-01-26 16:40 | PC.NURSE ---
contacted dietary for tray for pt
--- NOTE | 2022-01-26 17:03 | PC.NURSE ---
ROUNDED ON PT AND HELPED TO THE BATHROOM
--- NOTE | 2022-01-26 17:13 | PC.NURSE ---
dietary brought tray, pt is eating currently
--- NOTE | 2022-01-26 17:24 | PC.NURSE ---
MERY FLORES speaking with Dr. Alcala who is control operator for service pts
[2022-01-26 17:25] LABS: Burr Cells 1+; Eosinophils % 1 % (0-3); Lymphocytes % 7 % (10-50); Macrocytosis 1+; Monocytes % 2 % (2-9); Neutrophils % 90 % (42-76); Ovalocytes 1+; Platelet Estimate Normal; Total Cells Counted 100
--- NOTE | 2022-01-26 17:36 | PC.NURSE ---
notified housekeeper home of admission
--- NOTE | 2022-01-26 17:41 | PC.NURSE ---
report given to gabinorn
--- NOTE | 2022-01-26 18:17 | PC.NURSE ---
Pt arrived to the floor at this time
--- NOTE | 2022-01-26 18:50 | PC.NURSE ---
Attempted medication reconciliation, patient states she is unsure of what medications she takes or when she last took any of her medications.
[2022-01-26 22:39] LABS: Microscopic, Urine URINE MICROSCOPIC (MICROSCOPIC)
[2022-01-26 22:40] LABS: Appearance,Urine CLEAR (Clear); Bilirubin,Urine Negative (Negative); Blood, Urine 2+ (Negative); Color,Urine YELLOW (Yellow); Glucose,Urine (UA) Negative (Negative); Ketones,Urine Negative (Negative); Leukocyte Esterase,Urine Negative (Negative); Nitrate,Urine Negative (Negative); Protein,Urine 1+ (Negative); Specific Gravity, Urine >= 1.030 (1.005-1.030); Urobilinogen,Urine 0.2 EU/dl (0.2)
[2022-01-26 23:13] LABS: Bacteria,Urine 2+ /lpf; Mucus,Urine 2+ /lpf; WBC,Urine Occasional #/hpf (0-3)
[2022-01-27] VITALS (8 sets, daily range): BP systolic 127–170; BP diastolic 45–65; PULSE 79–92; RESP 18–26; TEMP 35.8–37.2; O2SAT 92–97
--- NOTE | 2022-01-27 05:30 | PC.NURSE ---
contacted early in shift after pt continued urgency to void without producing urine. Urinary catheter placed with return of 150 ml. UA obtained. New orders received to not keep F/C. Give pt pyridium 200 mg PO Q8 hr for 3 days. orders carried out. Pt has c/o soa x1 this shift. Remains on 3L O2 NC as she is at home. O2 sats low to mid 90s. Wheezing was noted t/o lung [place] along with scattered rhonchi. Pt has ambulated to [facility] with assist x1. Safety measures in place. Call light within reach.
--- NOTE | 2022-01-27 07:15 | EXP.PHA.VTE ---
[facility] Pharmacy VTE Monitoring Patient Demographics Admission date: 01/26/22 Report Date: 01/27/22 Time: 07:15 Patient Allergies codeine [CODEINE] Allergy (Unknown, Verified 01/09/22 15:16) UNKNOWN morphine [MORPHINE] Allergy (Unknown, Verified 01/09/22 15:16) Unknown allergy reaction Sulfa (Sulfonamide Antibiotics) [SULFA (SULFONAMIDE ANTIBIOTICS)] Allergy (Unknown, Verified 01/09/22 15:16) UNKNOWN Height: 1.6 m Weight: 51.12 kg Current Active Problems (Updated 01/26/22 @ 17:37 by William Bone MD) Community acquired pneumonia (Acute) Acute exacerbation of chronic obstructive pulmonary disease (Acute) Chronic respiratory failure with hypoxia and hypercapnia (Acute) VTE Risk Labs: VTE Related Lab Results Hgb 12.2 g/dL (12.2-16.2) 01/26/22 14:57 Hct 36.9 % (37.0-47.0) L 01/26/22 14:57 Plt Count 288 K/mm3 (142-424) 01/26/22 14:57 BUN 15 mg/dl (7-17) 01/26/22 14:57 Creatinine 0.40 mg/dl (0.52-1.04) L 01/26/22 14:57 Estimated Creat Clear 38 mL/min (50-200) 01/26/22 14:57 VTE Score: 4 VTE Risk Level: Low Risk Prophylaxis VTE Prophylaxis Ordered?: Yes Types of VTE Prophylaxis: TEDS Knee High Location of Applied Device: Bilateral Lower Extremeties
--- NOTE | 2022-01-27 07:15 | HMH.PHAINT1 ---
Pharmacy Intervention Comments: MEDICATION RECONCILIATION COMPLETED ON PATIENT USING EXTERNAL FILL HISTORY FROM PHARMACY AND FRANCES REPORT. -GIL MACHADO, SHARMAINED
--- NOTE | 2022-01-27 09:50 | EXP.HP ---
History of Present Illness *Admission Date: 01/26/22 *Reason for visit:: shortness of breath *History of present illness: Patient states she had a breathing spell .? States that she was just sitting at home and had increased difficulty breathing.? She has been wheezing.? States that she has a cough.? She has been nauseated yesterday without vomiting.? No fever.? No chest pain.? No diarrhea.? She has COPD.? She is on oxygen at home, 3 L.? She says she has a nebulizer but has not used any treatments today.? EMS reports that she also told them that she probably has lung cancer and is not doing anything about it .? EMS also reported to nursing staff that the patient was smoking with her oxygen on when they arrived. (above as per ER Physician) Patient is a poor historian. She states she did fall last week and hit her head, so it is unclear whether her memory issues are baseline or from her head injury. She was evaluated in the emergency room and a chest x-ray showed mild basilar basilar atelectasis versus pneumonia. Her white blood cell count was elevated at 27.2, her PCO2 was elevated at 68.7, and her PO2 was 75.6. Her pH however was normal. She was admitted and started on IV antibiotics, nebs, and steroids. [facility] Medical History Chronic hypoxemic respiratory failure Dyspnea on exertion History of COPD Lung mass On home oxygen therapy Pulmonary emphysema Smoking greater than 30 pack years Surgical History H/O cervical spine surgery Family History (Updated 01/27/22 @ 09:54 by SHAMEKA Newberry) Coronary artery disease Heart attack Social History Smoking Status: Current every day smoker tobacco type: cigarettes packs per day: 1 second hand exposure: No alcohol intake: never substance use type: denies use and unknown current occupational status: retired Travel in the last 8 weeks: None household members: spouse housing: house current occupational exposures/hazards: No caffeine: Yes Review of Systems Constitutional Constitutional: Denies chills, Reports fatigue, Denies fever(s), Denies headache(s) and Reports weakness Eyes Eyes: Denies blurry vision and Denies diplopia ENT Ears, Nose, Mouth, and Throat: Denies headache(s), Denies nasal congestion, Denies sore throat and Denies vertigo *Cardiovascular Cardiovascular: Denies chest pain and Reports dyspnea *Respiratory Respiratory: Reports cough and Reports dyspnea *Gastrointestinal Gastrointestinal: Reports constipation, Denies loose stools, Reports nausea and Denies vomiting *Genitourinary Genitourinary: Denies difficulty voiding and Denies dysuria *Musculoskeletal Musculoskeletal: Denies arthralgias *Neurologic Neurologic: Denies headache(s), Denies vertigo and Reports weakness Endocrine Endocrine: Reports fatigue Meds Home Medications and Allergies Home Medications Medication Instructions Recorded Confirmed Type budesonide 160 mcg-glycopyr 9 2 inh inhalation BID Breathing 01/26/22 01/26/22 History mcg-formot 4.8 mcg/actuation HFA problems inhaler (Breztri Venuemobphere) escitalopram oxalate 10 mg tablet 10 mg PO DAILY Depression 01/26/22 01/26/22 History albuterol sulfate 90 mcg/actuation 2 inh inhalation Q6HP PRN 01/27/22 01/27/22 History aerosol inhaler shortness of breath or wheezing diltiazem HCl 120 mg 120 mg PO DAILY HEART RATE 01/27/22 01/27/22 History capsule,extended release 24 hr, controlled ipratropium 0.5 mg-albuterol 3 mg 3 ml inhalation QIDP PRN shortness 01/27/22 01/27/22 History (2.5 mg base)/3 mL nebulization of breath or wheezing soln prednisone 10 mg tablet 10 mg PO DAILY COPD 01/27/22 01/27/22 History New Prescriptions to Start Prescriptions: Allergies Allergy/AdvReac Type Severity Reaction Status Date / Time codeine [CODEINE] Allergy Unknown UNKNOWN Verified 01/09/22 15:16 morphine
--- NOTE | 2022-01-27 12:09 | PC.NURSE ---
new iv started on patient. 20 gauge in r forearm. two sticks per barrett rn, and two per austin rn. tolerated well. patient has no concerns or questions at this time. assisted with setting up lunch tray. encouraged her to ring out with any needs or concerns.
--- NOTE | 2022-01-27 13:57 | PC.NURSE ---
Courtesy Tech round: helped pt to the BSC and back to the bed, x1 assist. bed in low position, call light in reach. no further requests were voiced.
--- NOTE | 2022-01-27 14:39 | PC.NURSE ---
pt has slept most of the shift, her lung sounds still have occassional wheezes. she also has a non productive cough. bowel sounds are hypoactive and pt states that she does not remember her last bm. 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 pt does appear to be slightly [place] but is able to converse with staff without difficulty. nad noted
[2022-01-28] VITALS (9 sets, daily range): BP systolic 133–144; BP diastolic 61–67; PULSE 75–96; RESP 22–28; TEMP 36.6–37.1; O2SAT 3–96; BMI 19.7
--- NOTE | 2022-01-28 06:45 | PC.NURSE ---
pt VSS, pt on 3LNC throughout shift, pt diminished with wheezes upon lung auscultation, pt receiving neb treatments tolerating well, pt awake most of shift and then rested some toward latter part of shift, pt getting up to bsc with orange UOP due to medication, no bm this shift, pt did not c/o any pain this shift, call light within reach
[2022-01-28 07:11] LABS: Basophils % 0.1 % (0.1-2.0); Hematocrit 33.1 % (37.0-47.0); Hemoglobin 10.3 g/dL (12.2-16.2); Lymphocytes # 0.6 K/mm3 (0.7-4.5); Lymphocytes % 3.4 % (10-50); Mean Corpuscular HGB Conc 31.2 g/dL (31.8-35.4); Mean Corpuscular Hemoglobin 32.5 pg (27.0-31.2); Mean Corpuscular Volume 104.2 fl (81-99); Mean Platelet Volume 8.5 fl (7.4-10.4); Monocytes # 0.4 K/mm3 (0.1-1.0); Monocytes % 2.3 % (1.7-9.3); Neutrophils # 16.9 K/mm3 (1.8-7.8); Neutrophils % 94.2 % (37.0-80.0); Platelet Count 277 K/mm3 (142-424); Red Blood Count 3.18 M/mm3 (4.20-5.40); Red Cell Distribution Width 16.2 % (11.5-17.5)
[2022-01-28 07:12] LABS: MANUAL DIFFERENTIAL MANUAL DIFFERENTIAL (MANUAL DIFF)
[2022-01-28 07:13] LABS: Blood Urea Nitrogen 34 mg/dl (7-17); Calcium 9.2 mg/dl (8.4-10.2); Chloride 96 mmol/L (98-107); Creatinine Clearance Estimated 36 mL/min (50-200); Estimated Glomerular Filt Rate 81 ml/min (>60); GFR (African American) 98 ML/MIN (>60); Glucose 149 mg/dl (74-100); Potassium 4.3 mmoL/L (3.5-5.1); Sodium 138 mmol/L (136-145)
[2022-01-28 07:46] LABS: Anion Gap 4.3 mEq/L (5-15); Carbon Dioxide 42 mmol/L (22.0-30.0)
[2022-01-28 09:36] LABS: Lymphocytes % 4 % (10-50); Neutrophils % 96 % (42-76); Platelet Estimate Normal; Total Cells Counted 100
[2022-01-28 09:37] LABS: Hypochromasia 1+; Macrocytosis 1+
--- NOTE | 2022-01-28 10:49 | PC.NURSE ---
Pt is rested. askked for ligts to be turned off. call light is within reach
--- NOTE | 2022-01-28 11:08 | EXP.PN ---
Subjective *Date: 01/28/22 *Time: 11:08 Interval history: She had an uneventful night and states she is breathing a little better today. She still has a cough which is mostly nonproductive. She is still wheezing. Exam Data for Last 24 hours Vital signs and Labs for Last 24 Hours: Temp Pulse Resp BP Pulse Ox 97.8 F 80 24 133/63 92 L 01/28/22 08:00 01/28/22 08:00 01/28/22 08:00 01/28/22 08:00 01/28/22 08:00 Laboratory Results - last 24 hr 01/28/22 06:25: WBC 18.0 H D, RBC 3.18 L, Hgb 10.3 L, Hct 33.1 L, MCV 104.2 H, MCH 32.5 H, MCHC 31.2 L, RDW 16.2, Plt Count 277, MPV 8.5, Neut % (Auto) 94.2 H, Lymph % (Auto) 3.4 L, [place] % (Auto) 2.3, Eos % (Auto) 0.0 L, Baso % (Auto) 0.1, Neut # (Auto) 16.9 H, Lymph # (Auto) 0.6 L, [place] # (Auto) 0.4, Eos # (Auto) 0.0, Baso # (Auto) 0.0, Total Counted 100, Neutrophils % (Manual) 96 H, Lymphocytes % (Manual) 4 L, Platelet Estimate Normal, Hypochromasia 1+, Macrocytosis 1+ 01/28/22 06:25: Sodium 138, Potassium 4.3, Chloride 96 L, Carbon Dioxide 42 H*, Anion Gap 4.3 L, BUN 34 H D, Creatinine 0.70 D, Estimated Creat Clear 36, Estimated GFR 81, Est GFR ( Amer) 98 D, Glucose 149 H, Calcium 9.2 I & O for Last 24 hours: Intake & Output 01/25/22 01/26/22 01/27/22 01/28/22 11:59 11:59 11:59 11:59 Intake Total 220 / 220 1020 / 1020 Output Total 700 / 700 900 / 900 Balance -480 / -480 120 / 120 Weight 112 lb 11.205 oz 111 lb 6 oz Microbiology Reports for the Last 24 Hours: Microbiology 01/26/22 10:05 Sputum - Expectorated Sputum Gram Stain - Final 01/26/22 10:05 Sputum - Expectorated Sputum Sputum Culture - Preliminary 01/26/22 21:08 Urine,Catheterized Urine Culture - Preliminary NO GROWTH AFTER 24 HOURS Constitutional Comments: Resting in bed with eyes closed. She arouses easily. She is slightly hard of hearing. No acute respiratory distress. Chest with bilateral wheezes and rhonchi. Heart is regular. Assessment and Plan *Assessment and plan (1) Community acquired pneumonia: Status: Acute Category: Medical Code(s): J18.9 - Pneumonia, unspecified organism (2) Acute exacerbation of chronic obstructive pulmonary disease: Status: Acute Category: Medical Code(s): J44.1 - Chronic obstructive pulmonary disease with (acute) exacerbation (3) Chronic respiratory failure with hypoxia and hypercapnia: Status: Chronic Category: Medical Code(s): J96.11 - Chronic respiratory failure with hypoxia; J96.12 - Chronic respiratory failure with hypercapnia (4) History of COPD: Status: Chronic Category: Medical Code(s): Z87.09 - Personal history of other diseases of the respiratory system (5) Lung mass: Status: Chronic Category: Medical Code(s): R91.8 - Other nonspecific abnormal finding of lung field (6) On home oxygen therapy: Status: Chronic Category: Medical Code(s): Z99.81 - Dependence on supplemental oxygen (7) Smoking greater than 30 pack years: Status: Chronic Category: Social Hx Code(s): F17.210 - Nicotine dependence, cigarettes, uncomplicated (8) HTN (hypertension): Status: Chronic Qualifiers: Hypertension type: essential hypertension Qualified Code(s): I10 - Essential (primary) hypertension Category: Medical Code(s): I10 - Essential (primary) hypertension (9) Chronic pain: Status: Chronic Category: Medical Code(s): G89.29 - Other chronic pain Assessment and plan all Dx Assessment and Plan All Dx:: White blood cell count has improved. Clinically stable. Continue IV Rocephin and Zithromax pending culture results. Continue IV steroids. Encourage out of bed activity.
--- NOTE | 2022-01-28 18:27 | PC.NURSE ---
Addendum entered by Gregory Eisenberg RN 01/28/22 19:17: Have educated pt of drinking po water for importance of improving uti. Verbalized understanding. Original Note: Pt a/o x 4. Remains on 3 L NC 02. VSS. Daughter here at this time and going to help pt w/ shower. Pt's lungs are still wheezy throughout, although audible wheezes are less. CB in reach and bed alarm in use for safety. Pt has been up to bsc this shift to urinate and med have been given per jul.
[2022-01-29] VITALS (10 sets, daily range): BP systolic 141–162; BP diastolic 57–69; PULSE 76–94; RESP 16–24; TEMP 36.5–37.2; O2SAT 89–96
--- NOTE | 2022-01-29 06:36 | PC.NURSE ---
pt rested off and on throughout shift, pt VSS, pt continues on 3LNC, lung sounds with wheezes, pt with labored breathing but is pt's baseline, pt receiving neb treatments, pt getting up to bsc with orange uop due to medication, pt stated hope I will go home today , pt's bed alarm on and call pathak within reach
[2022-01-29 07:51] LABS: Basophils % 0.2 % (0.1-2.0); Blood Urea Nitrogen 41 mg/dl (7-17); Calcium 9.1 mg/dl (8.4-10.2); Chloride 96 mmol/L (98-107); Creatinine Clearance Estimated 37 mL/min (50-200); Eosinophils % 0.1 % (0.1-12.0); Estimated Glomerular Filt Rate 81 ml/min (>60); GFR (African American) 98 ML/MIN (>60); Glucose 171 mg/dl (74-100); Hematocrit 33.7 % (37.0-47.0); Hemoglobin 10.6 g/dL (12.2-16.2); Lymphocytes # 0.8 K/mm3 (0.7-4.5); Lymphocytes % 5.2 % (10-50); Mean Corpuscular HGB Conc 31.4 g/dL (31.8-35.4); Mean Corpuscular Hemoglobin 32.8 pg (27.0-31.2); Mean Corpuscular Volume 104.6 fl (81-99); Mean Platelet Volume 8.6 fl (7.4-10.4); Monocytes # 0.4 K/mm3 (0.1-1.0); Monocytes % 2.7 % (1.7-9.3); Neutrophils # 13.5 K/mm3 (1.8-7.8); Neutrophils % 91.9 % (37.0-80.0); Platelet Count 312 K/mm3 (142-424); Potassium 5.1 mmoL/L (3.5-5.1); Red Blood Count 3.22 M/mm3 (4.20-5.40); Red Cell Distribution Width 15.8 % (11.5-17.5); Sodium 138 mmol/L (136-145); White Blood Count 14.7 K/mm3 (4.8-10.8)
[2022-01-29 07:52] LABS: MANUAL DIFFERENTIAL MANUAL DIFFERENTIAL (MANUAL DIFF)
[2022-01-29 08:03] LABS: Anion Gap 6.1 mEq/L (5-15); Carbon Dioxide 41 mmol/L (22.0-30.0)
[2022-01-29 08:45] LABS: Hypochromasia 1+; Lymphocytes % 2 % (10-50); Macrocytosis 1+; Neutrophils % 98 % (42-76); Platelet Estimate Normal; Total Cells Counted 100
--- NOTE | 2022-01-29 11:08 | EXP.PN ---
Subjective *Date: 01/29/22 *Time: 11:08 Interval history: Stable course. Spends most of her time in bed. Has been up to the bathroom. States her breathing feels better. Still with cough that is occasionally productive. No chest pain Exam Data for Last 24 hours Vital signs and Labs for Last 24 Hours: Temp Pulse Resp BP Pulse Ox FiO2 97.9 F 76 18 150/62 H 96 32 01/29/22 08:00 01/29/22 10:22 01/29/22 08:00 01/29/22 08:00 01/29/22 10:22 01/28/22 20:24 Laboratory Results - last 24 hr 01/29/22 07:03: WBC 14.7 H, RBC 3.22 L, Hgb 10.6 L, Hct 33.7 L, MCV 104.6 H, MCH 32.8 H, MCHC 31.4 L, RDW 15.8, Plt Count 312, MPV 8.6, Neut % (Auto) 91.9 H, Lymph % (Auto) 5.2 L, [place] % (Auto) 2.7, Eos % (Auto) 0.1, Baso % (Auto) 0.2, Neut # (Auto) 13.5 H, Lymph # (Auto) 0.8, [place] # (Auto) 0.4, Eos # (Auto) 0.0, Baso # (Auto) 0.0, Total Counted 100, Neutrophils % (Manual) 98 H, Lymphocytes % (Manual) 2 L, Platelet Estimate Normal, Hypochromasia 1+, Macrocytosis 1+ 01/29/22 07:03: Sodium 138, Potassium 5.1, Chloride 96 L, Carbon Dioxide 41 H*, Anion Gap 6.1, BUN 41 H, Creatinine 0.70, Estimated Creat Clear 37, Estimated GFR 81, Est GFR ( Amer) 98, Glucose 171 H, Calcium 9.1 I & O for Last 24 hours: Intake & Output 01/26/22 01/27/22 01/28/22 01/29/22 11:59 11:59 11:59 11:59 Intake Total 220 / 220 1320 / 1320 240 / 240 Output Total 700 / 700 1200 / 1200 1000 / 1000 Balance -480 / -480 120 / 120 -760 / -760 Weight 112 lb 11.205 oz 111 lb 6 oz 112 lb 14.027 oz Microbiology Reports for the Last 24 Hours: Microbiology 01/26/22 10:05 Sputum - Expectorated Sputum Gram Stain - Final 01/26/22 10:05 Sputum - Expectorated Sputum Sputum Culture - Preliminary Gram Negative Rods 01/26/22 21:08 Urine,Catheterized Urine Culture - Final NO GROWTH AFTER 48 HOURS 01/26/22 16:10 Blood Blood Culture - Preliminary NO GROWTH AFTER 48 HOURS 01/26/22 14:57 Blood Blood Culture - Preliminary NO GROWTH AFTER 48 HOURS Constitutional Comments: She is lying in bed. Appears in no distress. Color is good. Chest continues to show bilateral wheezes. Heart is regular. Extremities no edema. Sputum culture is growing a gram-negative viji with ID and sensitivities pending. Assessment and Plan *Assessment and plan (1) Community acquired pneumonia: Status: Acute Category: Medical Code(s): J18.9 - Pneumonia, unspecified organism (2) Acute exacerbation of chronic obstructive pulmonary disease: Status: Acute Category: Medical Code(s): J44.1 - Chronic obstructive pulmonary disease with (acute) exacerbation (3) Chronic respiratory failure with hypoxia and hypercapnia: Status: Chronic Category: Medical Code(s): J96.11 - Chronic respiratory failure with hypoxia; J96.12 - Chronic respiratory failure with hypercapnia (4) History of COPD: Status: Chronic Category: Medical Code(s): Z87.09 - Personal history of other diseases of the respiratory system (5) Lung mass: Status: Chronic Category: Medical Code(s): R91.8 - Other nonspecific abnormal finding of lung field (6) On home oxygen therapy: Status: Chronic Category: Medical Code(s): Z99.81 - Dependence on supplemental oxygen (7) Smoking greater than 30 pack years: Status: Chronic Category: Social Hx Code(s): F17.210 - Nicotine dependence, cigarettes, uncomplicated (8) HTN (hypertension): Status: Chronic Qualifiers: Hypertension type: essential hypertension Qualified Code(s): I10 - Essential (primary) hypertension Category: Medical Code(s): I10 - Essential (primary) hypertension (9) Chronic pain: Status: Chronic Category: Medical Code(s): G89.29 - Other chronic pain Assessment
--- NOTE | 2022-01-29 11:11 | XR_ITS ---
PROCEDURE INFORMATION: Exam: XR Chest Exam date and time: 01/29/2022 11:21 AM Age: 81 years old Clinical indication: Shortness of breath; Additional info: F/u pneumonia TECHNIQUE: Imaging protocol: Radiologic exam of the chest. Views: 2 views. COMPARISON: CR XR CHEST PORTABLE 01/26/2022 3:26 PM FINDINGS: Lungs: Hyperlucent changes are demonstrated. Increase in the lung volumes is demonstrated. Mild prominence of the interstitial markings suggestive of underlying changes of interstitial lung disease. No focal regions of consolidation demonstrated the current study. Pleural spaces: Unremarkable. No pleural effusion. No pneumothorax. Heart/Mediastinum: Unremarkable. No cardiomegaly. Diaphragm: There is flattening of the hemidiaphragms. Bones/joints: Unremarkable. IMPRESSION: Findings compatible with chronic obstructive pulmonary disease.
--- NOTE | 2022-01-29 18:23 | PC.NURSE ---
shift summary: pt has done well this shift. GCS 15. Gets OOB to BSC without assistance. VSS. On 3L NC continuously. Bilateral inspiratory and expiratory wheezing noted, improves with neb tx. Productive cough at times. Tolerates a cardiac diet. Nicotine patch placed on RUE.
[2022-01-30] VITALS: BP 153/63; PULSE 98; RESP 20; TEMP 37.1; O2SAT 90
[2022-01-30 04:00] VITALS: BP 157/72; PULSE 89; RESP 20; TEMP 36.9; O2SAT 88
[2022-01-30 05:43] VITALS: PULSE 84; PULSE 91; O2SAT 88
--- NOTE | 2022-01-30 06:29 | PC.NURSE ---
shift summary: pt rested well overnight, pt's VSS, pt getting up to bsc with orange UOP from medication, pt on 2LNC throughout shift, pt with very diminished lung sounds, pt's respirations labored but is pt's baseline, call light within reach
[2022-01-30 08:00] VITALS: BP 170/82; PULSE 94; RESP 18; TEMP 36.7; O2SAT 90
--- NOTE | 2022-01-30 08:09 | EXP.PN ---
Subjective *Date: 01/30/22 *Time: 08:41 Interval history: Patient states she is doing better. She is breathing better. She states she did not sleep because of the noise. She continues with a cough. She has been up to bedside commode. She is eating as usual without any difficulties. Nurses state there is evidence she is she is smoking in the room. She continues with O2 per nasal cannula at 2 L/min. CXR 01/29/2022 FINDINGS: Lungs: Hyperlucent changes are demonstrated. Increase in the lung volumes is demonstrated. Mild prominence of the interstitial markings suggestive of underlying changes of interstitial lung disease. No focal regions of consolidation demonstrated the current study. Pleural spaces: Unremarkable. No pleural effusion. No pneumothorax. Heart/Mediastinum: Unremarkable. No cardiomegaly. Diaphragm: There is flattening of the hemidiaphragms. Bones/joints: Unremarkable. IMPRESSION: Findings compatible with chronic obstructive pulmonary disease. Exam Data for Last 24 hours Vital signs and Labs for Last 24 Hours: Temp Pulse Resp BP Pulse Ox FiO2 98.4 F 84 20 157/72 H 88 L 28 01/30/22 04:00 01/30/22 05:43 01/30/22 04:00 01/30/22 04:00 01/30/22 05:43 01/29/22 20:47 Laboratory Results - last 24 hr 01/29/22 07:03: Total Counted 100, Neutrophils % (Manual) 98 H, Lymphocytes % (Manual) 2 L, Platelet Estimate Normal, Hypochromasia 1+, Macrocytosis 1+ I & O for Last 24 hours: Intake & Output 01/27/22 01/28/22 01/29/22 01/30/22 11:59 11:59 11:59 11:59 Intake Total 220 / 220 1320 / 1320 480 / 480 1020 / 1020 Output Total 700 / 700 1200 / 1200 1000 / 1000 1100 / 1100 Balance -480 / -480 120 / 120 -520 / -520 -80 / -80 Weight 112 lb 11.205 oz 111 lb 6 oz 112 lb 14.027 oz 112 lb 12.616 oz Microbiology Reports for the Last 24 Hours: Microbiology 01/26/22 10:05 Sputum - Expectorated Sputum Gram Stain - Final 01/26/22 10:05 Sputum - Expectorated Sputum Sputum Culture - Preliminary Gram Negative Rods Constitutional Constitutional: no acute distress, thin and cooperative *Routine Respiratory Exam Respiratory: Present accessory muscle use, wheezes (Scattered bilaterally; expiratory) and diminished air movement *Routine Cardiovascular Exam Cardiovascular: Present RRR *Routine Abdominal Exam Abdominal: Present soft and normoactive bowel sounds; Absent tenderness *Routine Extremities Exam Extremities: Absent edema or calf tenderness *Routine Neurological Exam Neurological: Present alert and oriented X3 Assessment and Plan *Assessment and plan (1) Community acquired pneumonia: Status: Acute Category: Medical Code(s): J18.9 - Pneumonia, unspecified organism (2) Acute exacerbation of chronic obstructive pulmonary disease: Status: Acute Category: Medical Code(s): J44.1 - Chronic obstructive pulmonary disease with (acute) exacerbation (3) Chronic respiratory failure with hypoxia and hypercapnia: Status: Chronic Category: Medical Code(s): J96.11 - Chronic respiratory failure with hypoxia; J96.12 - Chronic respiratory failure with hypercapnia (4) History of COPD: Status: Chronic Category: Medical Code(s): Z87.09 - Personal history of other diseases of the respiratory system (5) Dyspnea on exertion: Status: Acute Category: Medical Code(s): R06.09 - Other forms of dyspnea (6) Lung mass: Status: Chronic Category: Medical Code(s): R91.8 - Other nonspecific abnormal finding of lung field (7) On home oxygen therapy: Status: Chronic Category: Medical Code(s): Z99.81 - Dependence on supplemental oxygen (8) Chronic hypoxemic respiratory failure: Status: Acute Category: Medical Code(s): J96.11 - Chronic respiratory failure with hypoxia (9) Smoking greater than 30 pack years: Status: Chronic Category:
[2022-01-30 08:30] VITALS: PULSE 94; O2SAT 92
--- NOTE | 2022-01-30 09:43 | EXP.PHA.PN ---
Subjective *Date: 01/30/22 *Time: 09:43 Medical Exam Vital signs and Labs for Last 24 Hours: Temp Pulse Resp BP Pulse Ox FiO2 98.1 F 94 H 18 170/82 H 92 L 28 01/30/22 08:00 01/30/22 08:30 01/30/22 08:00 01/30/22 08:00 01/30/22 08:30 01/29/22 20:47 I & O for Labs for Last 24 Hours: Intake & Output 01/27/22 01/28/22 01/29/22 01/30/22 23:59 23:59 23:59 23:59 Intake Total 780 / 780 780 / 780 1260 / 1260 240 / 240 Output Total 1000 / 1000 1150 / 1150 1300 / 1300 300 / 300 Balance -220 / -220 -370 / -370 -40 / -40 -60 / -60 Weight 51.12 kg 50.519 kg 51.2 kg 51.16 kg Microbiology Reports for the Last 24 Hours: Microbiology 01/26/22 10:05 Sputum - Expectorated Sputum Gram Stain - Final 01/26/22 10:05 Sputum - Expectorated Sputum Sputum Culture - Preliminary Gram Negative Rods The patient's infection will respond to the chosen ABx?: Yes (EMPIRIC THERAPY) Is the patient receiving the right drug, dose, and route?: Yes Could a more targeted ABx be ordered?: No (CULTURES PENDING)
[2022-01-30 09:53] VITALS: PULSE 78
--- NOTE | 2022-01-31 11:33 | CARE MANAGER ---
Contacted patient's son. He states that the patient is asleep. She was vomiting earlier this morning and he is concerned about that. He states they spoke with doctor's office and they are changing her antibiotics. They also decided she needs a BSC and had already contacted [facility] to get this. They are going to monitor her and reach out to MD if continues to feel bad. Denies questions or concerns at this time. MARY Oropeza
--- NOTE | 2022-01-31 22:36 | EXP.DC.SUM ---
General Admission date:: 01/26/22 Discharge date: 01/30/22 HPI HPI HPI: Patient states she had a breathing spell .? States that she was just sitting at home and had increased difficulty breathing.? She has been wheezing.? States that she has a cough.? She has been nauseated yesterday without vomiting.? No fever.? No chest pain.? No diarrhea.? She has COPD.? She is on oxygen at home, 3 L.? She says she has a nebulizer but has not used any treatments today.? EMS reports that she also told them that she probably has lung cancer and is not doing anything about it .? EMS also reported to nursing staff that the patient was smoking with her oxygen on when they arrived. (above as per ER Physician) Patient is a poor historian. She states she did fall last week and hit her head, so it is unclear whether her memory issues are baseline or from her head injury. She was evaluated in the emergency room and a chest x-ray showed mild basilar basilar atelectasis versus pneumonia. Her white blood cell count was elevated at 27.2, her PCO2 was elevated at 68.7, and her PO2 was 75.6. Her pH however was normal. She was admitted and started on IV antibiotics, nebs, and steroids. Hospital Course Hospital Course Hospital Course: The patient's chest x-ray showed mild basilar atelectasis versus pneumonia. She was admitted and started on antibiotics, nebs, and steroids. Her breathing did improve and her cough was mostly nonproductive. She continued with some wheezing. Her white blood cell count improved and she was continued on antibiotics. Her urine and blood culture showed no growth. A repeat chest x-ray was ordered. Her nurse stated there was evidence she was smoking in the room. She was continued on oxygen. Her repeat chest x-ray showed chronic obstructive pulmonary disease. She was stable to be discharged home. Of note, her preliminary sputum culture is showing Stenotrophomonas maltophilia. This is sensitive to Levaquin and Bactrim Exam Data for Last 24 hours Vital signs and Labs for Last 24 Hours: Temp Pulse Resp BP Pulse Ox FiO2 98.1 F 78 18 170/82 H 92 L 28 01/30/22 08:00 01/30/22 09:53 01/30/22 08:00 01/30/22 08:00 01/30/22 08:30 01/29/22 20:47 I & O for Last 24 hours: Intake & Output 01/29/22 01/30/22 01/31/22 02/01/22 11:59 11:59 11:59 11:59 Intake Total 480 / 480 1260 / 1260 Output Total 1000 / 1000 1100 / 1100 Balance -520 / -520 160 / 160 Weight 112 lb 14.027 oz 112 lb 12.616 oz Microbiology Reports for the Last 24 Hours: Microbiology 01/26/22 16:10 Blood Blood Culture - Final NO GROWTH AFTER 5 DAYS 01/26/22 14:57 Blood Blood Culture - Final NO GROWTH AFTER 5 DAYS Narrative: Constitutional Constitutional: no acute distress *Routine HEENT Exam Head: Present normocephalic and atraumatic Eye: Present EOMI and PERRL ENT: Present mucous membranes moist *Routine Neck Exam Neck: Present supple and full ROM *Routine Respiratory Exam Respiratory: Present rhonchi and wheezes *Routine Cardiovascular Exam Cardiovascular: Present RRR *Routine Abdominal Exam Abdominal: Present soft and normoactive bowel sounds; Absent tenderness *Routine Rectal Exam Rectal:: deferred *Routine Genitalia Exam Genitalia:: deferred *Routine Extremities Exam Extremities: Absent cyanosis, clubbing or edema *Routine Skin Exam Skin: Present intact; Absent erythema *Routine Neurological Exam Neurological: Present alert and oriented X3 Results Data Completed and Pending Labs on day of discharge: Preliminary micro results at discharge 01/26/22 10:05 Sputum Culture - Preliminary Sputum - Expectorated Sputum Stenotrophomonas maltophilia DS: Diagnosis Discharge Diagnosis (1) Community acquired pneumonia: Status: Acute (2) Acute exacerbation of chronic obstructive pulmonary disease: Status: Acute (3) Chronic respiratory failure wit
== END 2022-01-30 11:22 | disposition home or self-care (01) | DRG 193 ==
LOC: ER 17:45 → 2ND 18:20
PROVIDERS: Family Medicine; Admitting Provider Family Medicine; Emergency Provider Emergency Medicine; PCP Family Medicine; Visit Provider Family Medicine
DX: J18.9 Pneumonia, unspecified organism (principal); J96.01 Acute respiratory failure with hypoxia; J96.11 Chronic respiratory failure with hypoxia; Z99.81 Dependence on supplemental oxygen; J43.9 Emphysema, unspecified; F17.210 Nicotine dependence, cigarettes, uncomplicated; I10 Essential (primary) hypertension
CPT/HCPCS: 36415; 71045; 71046; 80048; 80053; 81001; 82803; 83605; 85007; 85025; 87040; 87070; 87077; 87086; 87186; 87205; 93005; 94640; 94760; 94761; 99285; C9803; J0456; J0696; U0003; U0005

== ENCOUNTER → 2022-02-13 13:10 | Outpatient (CLI) | payer MEDICARE, SELFPAY ==
[2022-02-13 14:00] VITALS: PULSE 74; PULSE 77
--- NOTE | 2022-02-13 15:02 | RESP.PFTBD ---
Patient attempted (3 times) to do DLCO but, could not follow coaching to do test accurately. Patient also refused 6 minute [address].
== END ==
PROVIDERS: PCP Family Medicine; Visit Provider Internal Medicine Pulmonary Disease
DX: R06.02 Shortness of breath (principal)
CPT/HCPCS: 94060; 94640; 94727; 94729